=== PATIENT | female | born 1945 | race Caucasian/White ===

== ENCOUNTER → 2018-04-01 11:04 | Outpatient (POV) | payer MEDICARE, SELFPAY | PROVIDERS: Visit Provider Dermatology | DX: Z00.00 Encounter for general adult medical examination without abnormal findings (principal) ==

== ENCOUNTER → 2018-11-05 12:00 | Outpatient (CLI) | payer MEDICARE, SELFPAY ==
--- NOTE | 2018-11-05 12:24 | XR_ITS ---
EXAM: XR cervical spine 3V HISTORY: Neck pain ITS.REASON: BACK PAIN ORDERING PHYSICIAN: Rosa Elena Christine APRN PATIENT AGE: 72 years COMPARISON: None FINDINGS: There is minimal anterolisthesis of C4 on C5 of 2 to 3 mm. Mild degenerative disc disease is present at C5-C6 and C6-C7. There are mild facet hypertrophic changes from C3 to C7. No fracture or dislocation. No lytic or blastic change. 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
--- NOTE | 2018-11-05 12:25 | XR_ITS ---
EXAM: XR thoracic spine 3V HISTORY: Thoracic pain stiffness ITS.REASON: BACK PAIN Comparison: None FINDINGS: Normal alignment. There is mild multilevel degenerative disc disease throughout the thoracic spine. No lytic or blastic change. Normal alignment. No acute fracture or dislocation. IMPRESSION: Mild degenerative changes, no acute finding
--- NOTE | 2018-11-05 12:25 | XR_ITS ---
EXAM: XR lumbar spine 2-3V HISTORY: ITS.REASON: Low back PAIN ORDERING PHYSICIAN: Rosa Elena Christine APRN PATIENT AGE: 72 years COMPARISON: None FINDINGS: Normal alignment. Mild degenerative disc disease L1-S1. No acute fracture, dislocation, lytic, or blastic change. Minimal lumbar curvature convex left. IMPRESSION: Mild degenerative changes
--- NOTE | 2018-11-05 12:26 | XR_ITS ---
XR hip RT 2-3V w/pelvis HISTORY: Right hip pain ITS.REASON: HIP PAIN ORDERING PHYSICIAN: Rosa Elena Christine APRN PATIENT AGE: 72 years COMPARISON: None FINDINGS: No fracture or dislocation is evident. No significant degenerative change. No lytic or blastic change. Unremarkable soft tissues IMPRESSION: Negative hip
== END ==
PROVIDERS: PCP Family Medicine; Visit Provider Nurse Practitioner Family
DX: M54.9 Dorsalgia, unspecified (principal); M25.551 Pain in right hip; M54.2 Cervicalgia
CPT/HCPCS: 72040; 72072; 72100; 73502

== ENCOUNTER → 2019-04-07 09:55 | Outpatient (POV) | payer MEDICARE, SELFPAY | PROVIDERS: Visit Provider Dermatology | DX: Z00.00 Encounter for general adult medical examination without abnormal findings (principal) ==

== ENCOUNTER → 2020-01-05 10:42 | Outpatient (CLI) | payer MEDICARE, SELFPAY ==
--- NOTE | 2020-01-05 10:45 | XR_ITS ---
PROCEDURE: XR DEXA AXIAL SKELETON CLINICAL HISTORY: OSTEOPENIA COMPARISON: CR BONE3 BONE DENSITOMETRY(HIP:LT SPINE from 11/13/2016 FINDINGS: The right hip BMD is 0.740 with a T-score of -1.0. The left hip BMD is 0.804 with a T-score of -1.1. The lumbar spine BMD is 1.073 with a T-score of 0.2. No significant change compared to the previous exam. IMPRESSION: This patient is considered osteopenic according to the World Health Organization criteria. Bone density is between 10 and 25 percent below young normal. Fracture risk is moderate. Treatment is advised. Based on these results a follow-up exam is recommended in 2 year. Dictated by: Сергей Clark MD 01/06/2020 04:19 Сергей Clark MD in [facility] 01/06/2020 04:19
== END ==
PROVIDERS: PCP Family Medicine; Visit Provider Nurse Practitioner Family
DX: M85.89 Other specified disorders of bone density and structure, multiple sites (principal)
CPT/HCPCS: 77080

== ENCOUNTER → 2020-04-12 12:52 | Outpatient (POV) | payer MEDICARE, SELFPAY | PROVIDERS: Visit Provider Dermatology | DX: Z00.00 Encounter for general adult medical examination without abnormal findings (principal) ==

== ENCOUNTER → 2020-07-25 08:51 | Outpatient (CLI) | payer MEDICARE, SELFPAY ==
--- NOTE | 2020-07-25 08:55 | XR_ITS ---
PROCEDURE: XR HAND LT MIN 3V CLINICAL INDICATION: LT hand pain COMPARISON: No exams were available for comparison FINDINGS: Severe degenerative changes of the 1st CMC joint are noted. No acute fractures or dislocations. There is loss of joint space and heterotopic ossification noted at the distal interphalangeal joints. No evidence of erosions. Bone density is normal. No significant soft tissue abnormality. Other findings:None. IMPRESSION: Osteoarthritis noted at 1st CMC joint and DIP joints. No acute fractures or dislocations. Dictated by: Lupis Billy 07/25/2020 17:45 Lupis Billy in [facility] 07/25/2020 17:45
--- NOTE | 2020-07-25 08:55 | XR_ITS ---
PROCEDURE: XR HAND RT MIN 3V CLINICAL INDICATION: BL hand pain COMPARISON: No exams were available for comparison FINDINGS: Degenerative changes are noted with mild juxta-articular osteoporosis, predominantly at the PIP and DIP joints. No acute fractures or dislocations. Osteoarthritis noted at the 1st CMC joint. No significant soft tissue abnormality. IMPRESSION: Findings are suggestive of osteoarthritis. No acute fractures or dislocations. Dictated by: Lupis Billy 07/25/2020 17:47 Lupis Billy in [facility] 07/25/2020 17:47
== END ==
PROVIDERS: PCP Family Medicine; Visit Provider Orthopaedic Surgery
DX: M79.641 Pain in right hand (principal); M79.642 Pain in left hand
CPT/HCPCS: 73130

== ENCOUNTER → 2020-08-19 11:03 | Outpatient (CLI) | payer MEDICARE, SELFPAY | PROVIDERS: PCP Nurse Practitioner Family; Visit Provider Orthopaedic Surgery Hand Surgery | DX: Z01.812 Encounter for preprocedural laboratory examination (principal); Z11.52 Encounter for screening for COVID-19 | CPT/HCPCS: U0003 ==

== ENCOUNTER → 2021-05-18 13:12 | Outpatient (CLI) | payer MEDICARE, SELFPAY ==
[2021-05-18 13:52] LABS: Adenovirus,PCR Not Detected (NotDetected); Bordetella Pertussis Not Detected (NotDetected); Chlamydophila Pneumoniae, PCR Not Detected (NotDetected); Coronavirus 229E Not Detected (NotDetected); Coronavirus NL63 Not Detected (NotDetected); Coronavirus OC43 Not Detected (NotDetected); Coronovirus HKU1,PCR Not Detected (NotDetected); Human Metapneumovirus Not Detected (NotDetected); Influenza A, PCR Not Detected (NotDetected); Influenza AH1, 2009 Not Detected (NotDetected); Influenza AH1, PCR Not Detected (NotDetected); Influenza AH3,PCR Not Detected (NotDetected); Influenza B, PCR Not Detected (NotDetected); Mycoplasma Pneumoniae, PCR Not Detected (NotDetected); Parainfluenza 1, PCR Not Detected (NotDetected); Parainfluenza 2, PCR Not Detected (NotDetected); Parainfluenza 3, PCR Not Detected (NotDetected); Parainfluenza 4, PCR Not Detected (NotDetected); Respiratory Syncytial Virus Not Detected (NotDetected); Rhinovirus/Enterovirus Not Detected (NotDetected)
[2021-05-18 14:01] LABS: Basophils % 0.2 % (0.1-2.0); Eosinophils % 0.2 % (0.1-12.0); Hematocrit 40.4 % (37.0-47.0); Hemoglobin 13.2 g/dL (12.2-16.2); Lymphocytes # 1.2 K/mm3 (0.7-4.5); Lymphocytes % 10.7 % (10-50); Mean Corpuscular HGB Conc 32.6 g/dL (31.8-35.4); Mean Corpuscular Hemoglobin 30.1 pg (27.0-31.2); Mean Corpuscular Volume 92.4 fl (81-99); Monocytes # 0.6 K/mm3 (0.1-1.0); Monocytes % 5.3 % (1.7-9.3); Neutrophils # 9.3 K/mm3 (1.8-7.8); Neutrophils % 83.6 % (37.0-80.0); Platelet Count 261 K/mm3 (142-424); Red Blood Count 4.37 M/mm3 (4.20-5.40); Red Cell Distribution Width 13.1 % (11.5-17.5); White Blood Count 11.1 K/mm3 (4.8-10.8)
[2021-05-18 16:28] LABS: Coronavirus 19, PCR Detected (NotDetected)
== END ==
PROVIDERS: PCP Nurse Practitioner Family; Visit Provider Physician Assistant
DX: U07.1 COVID-19 (principal)
CPT/HCPCS: 36415; 85025; 87581; 87632; 87798; C9803; U0003; U0005

== ENCOUNTER → 2021-07-11 14:11 | Outpatient (POV) | payer MEDICARE, SELFPAY | PROVIDERS: Visit Provider Dermatology | DX: Z00.00 Encounter for general adult medical examination without abnormal findings (principal) ==

== ENCOUNTER → 2021-07-24 09:11 | Outpatient (CLI) | payer MEDICARE, SELFPAY ==
--- NOTE | 2021-07-24 09:15 | XR_ITS ---
FINAL REPORT CLINICAL HISTORY: pain, arthritis FINDINGS: LEFT FOOT: Three views of the left foot were obtained. There is no acute fracture or dislocation. There are [id number] degenerative changes, greatest at the tarsometatarsal joints. There is pes planus deformity. There is a small plantar calcaneal spur. There is no soft tissue abnormality. IMPRESSION: Mild and moderate degenerative changes. Reviewed, Interpreted and Dictated by David Dixon III, MD Transcribed by Marvel Mora Authenticated by David Dixon III, MD on 07/24/2021 11:17:22 AM [facility]
--- NOTE | 2021-07-24 09:15 | XR_ITS ---
FINAL REPORT CLINICAL HISTORY: pain, arthritis FINDINGS: RIGHT FOOT: Three views of the right foot were obtained. There is no acute fracture or dislocation. There are moderate degenerative changes greatest at the tarsometatarsal joints. There is a plantar calcaneal spur. There is no soft tissue abnormality. IMPRESSION: Moderate degenerative changes. Reviewed, Interpreted and Dictated by David Dixon III, MD Transcribed by Marvel Mora Authenticated by David Dixon III, MD on 07/24/2021 11:17:[address] [facility]
== END ==
PROVIDERS: PCP Nurse Practitioner Family; Visit Provider Podiatrist
DX: M79.672 Pain in left foot (principal); M79.671 Pain in right foot; A05.4 Foodborne Bacillus cereus intoxication; B95.7 Other staphylococcus as the cause of diseases classified elsewhere
CPT/HCPCS: 73630; 87070; 87077; 87186; 87205; 88304; 88312

== ENCOUNTER → 2021-07-25 15:08 | Outpatient (CLI) | payer MEDICARE, SELFPAY ==
--- NOTE | 2021-07-25 15:14 | XR_ITS ---
FINAL REPORT CLINICAL HISTORY: CHEST PAIN FINDINGS: Two views of the chest were obtained. The heart size and pulmonary vascularity are within normal limits. The mediastinum is normal. No acute pulmonary abnormality is identified. There is no pneumothorax. The bony thorax is intact. IMPRESSION: No active cardiopulmonary disease. Reviewed, Interpreted and Dictated by David Dixon III, MD Transcribed by Carey Marx Authenticated by David Dixon III, MD on 07/25/2021 04:31:10 PM [facility]
--- NOTE | 2021-07-25 15:30 | ECG_ITS ---
APPROVED REPORT Exam: Resting ECG HR:72 bpm ECG Measurements Heart Rate 72 AXES KS 202 P 58 QRSd 88 QRS -18 QT 392 T 35 QTc 415 Conclusion SINUS RHYTHM LOW QRS VOLTAGE IN PRECORDIAL LEADS [QRS DEFLECTION < 1.0 mV IN CHEST LEADS] BORDERLINE ECG UNCONFIRMED REPORT Electronically signed by : Merrick Cortés MD 07/29/2021 08:17:47
== END ==
PROVIDERS: PCP Nurse Practitioner Family; Visit Provider Nurse Practitioner Family
DX: R07.9 Chest pain, unspecified (principal)
CPT/HCPCS: 71046; 93005

== ENCOUNTER 2022-05-27 05:02 | Emergency (ER) | payer MEDICARE, SELFPAY ==
--- NOTE | 2022-05-27 05:16 | ECG_ITS ---
APPROVED REPORT Exam: Resting ECG HR:78 bpm ECG Measurements Heart Rate 78 AXES MI 198 P 60 QRSd 88 QRS -15 QT 405 T 40 QTc 438 Conclusion SINUS RHYTHM LOW QRS VOLTAGE IN PRECORDIAL LEADS [QRS DEFLECTION < 1.0 mV IN CHEST LEADS] BORDERLINE ECG UNCONFIRMED REPORT Electronically signed by : Merrick Cortés MD 05/27/2022 15:13:18
--- NOTE | 2022-05-27 05:23 | HMH.EDGENADL ---
Discharge Plan Disposition Patient Disposition: Home, Self-Care Condition: Good Chief Complaint: Extremity Problem,Nontraumatic Prescriptions Prescriptions: No Action loratadine 10 mg tablet 10 mg PO Label Comments: TK 1 T PO QD diclofenac sodium 1 % gel TOPICAL lisinopril-hydrochlorothiazide 10-12.5 mg tablet 1 tab PO omeprazole 20 mg capsule,delayed release(DR/EC) 20 mg PO simvastatin 20 mg tablet 20 mg PO hydroxychloroquine 200 mg tablet 200 mg PO fluticasone propionate 50 mcg/actuation spray,suspension INTRANASAL montelukast 10 mg tablet 10 mg PO ciclopirox 8 % solution 1 applic TOPICAL DAILY 90 Days Qty: 6.6 3RF Rx Instructions: apply over previous coat; remove with alcohol every 7 days and file down nail albuterol sulfate 90 mcg/actuation HFA aerosol inhaler INHALATION nystatin 100,000 unit/gram powder 1 applic TOPICAL BID Qty: 45 3RF Referrals Follow up/Referrals: Booker Seth MD [Primary Care Provider] - See instructions Clinical Impressions Clinical Impression: Arm pain, left Instructions Patient Instructions: DI for Arm Pain Discharge ED Provider: Dilip Nash General Adult HPI General Chief complaint: Extremity Problem,Nontraumatic Stated complaint: Left arm Pain no injury,nausea Time Seen by Provider: 05/27/22 05:06 Mode of Arrival: Ambulatory History of Present Illness HPI narrative: 76-year-old female, history of hypertension, hyperlipidemia both treated, no coronary disease although she has had ablations for tachycardic episodes. She presents tonight with left arm pain, states she was urged by her present because of significant family history of cardiac disease although she does not have any documented herself. She has had stress test although its been greater than 2 years since the last time this was done. She denies any shortness of breath, nausea, vomiting, diaphoresis or any other symptoms. Denies palpitations, lightheadedness or near syncopal episodes. Pain is isolated to the lateral aspect of the left midshaft humerus. Not reproducible with movement or palpation, there was no injury noted, denies any distal numbness or tingling, sensation is normal there. Related Data Home Medications Medication Instructions Recorded Confirmed diclofenac sodium 1 % topical gel g topical 03/14/20 01/11/22 fluticasone propionate 50 spray intranasal 03/14/20 01/11/22 mcg/actuation nasal spray,suspension hydroxychloroquine 200 mg tablet 200 mg PO 03/14/20 01/11/22 lisinopril 10 1 tab PO 03/14/20 01/11/22 mg-hydrochlorothiazide 12.5 mg tablet loratadine 10 mg tablet 10 mg PO 03/14/20 01/11/22 montelukast 10 mg tablet 10 mg PO 03/14/20 01/11/22 omeprazole 20 mg capsule,delayed 20 mg PO 03/14/20 01/11/22 release simvastatin 20 mg tablet 20 mg PO 03/14/20 01/11/22 albuterol sulfate 90 mcg/actuation g inhalation 07/24/21 01/11/22 aerosol inhaler Previous Rx's Medication Instructions Recorded ciclopirox 8 % topical solution 1 applic topical DAILY toenail 03/14/20 fungus 3 months #6.6 mL nystatin 100,000 unit/gram topical 1 applic topical BID #45 ea 07/24/21 powder Allergies Allergy/AdvReac Type Severity Reaction Status Date / Time No Known Allergies Allergy Verified 01/11/22 11:18 [facility] Disclaimer: The information contained in this section may have been updated after the patient was seen, as this information can be updated by other users. Social History Smoking Status: Never smoker alcohol intake: never current occupational status: employed Travel in the last 8 weeks: None ROS Obtained: Yes All systems reviewed & no additional complaints except as documented Physical Exam General General appearance: alert and in no apparent distress Head Head exam: atraumatic, normocephal
[2022-05-27 05:31] VITALS: BP 157/98; PULSE 73; RESP 18; TEMP 36.8; O2SAT 98; BMI 29.5
--- NOTE | 2022-05-27 05:32 | XR_ITS ---
PROCEDURE INFORMATION: Exam: XR Left Humerus Exam date and time: 05/27/2022 5:58 AM Age: 76 years old Clinical indication: Pain; Upper arm; Left TECHNIQUE: Imaging protocol: Radiologic exam of the Left humerus. Views: 2 or more views. COMPARISON: None FINDINGS: Bones/joints: Degenerative change. No acute bony injury in the visualized left humerus. If injury involving the shoulder or elbow is of clinical concern, dedicated radiographs would be recommended. Soft tissues: Unremarkable. Other findings: Metallic snaps. IMPRESSION: No acute bony injury in the visualized left humerus, see comments above.
--- NOTE | 2022-05-27 05:33 | XR_ITS ---
PROCEDURE INFORMATION: Exam: XR Chest Exam date and time: 05/27/2022 5:58 AM Age: 76 years old Clinical indication: Pain; Chest pressure; Additional info: Sob/cp TECHNIQUE: Imaging protocol: Radiologic exam of the chest. Views: 1 view. COMPARISON: CR XR CHEST 2V 07/25/2021 3:17 PM FINDINGS: Lungs: Interstitial prominence without acute airspace disease. Pleural spaces: No pleural effusion. Heart/Mediastinum: Epicardial fat, without cardiomegaly. Bones/joints: Degenerative change. When correlating with the previous study, no significant interval changes are present. IMPRESSION: No acute airspace or pleural disease.
[2022-05-27 05:40] LABS: Chloride 101 mmol/L (98-107)
[2022-05-27 05:41] LABS: Basophils # 0.1 K/mm3 (0-0.2); Basophils % 1.6 % (0.1-2.0); Eosinophils # 0.1 K/mm3 (0.0-0.4); Eosinophils % 2.3 % (0.1-12.0); Hematocrit 40.2 % (37.0-47.0); Hemoglobin 13.6 g/dL (12.2-16.2); Lymphocytes # 2.3 K/mm3 (0.7-4.5); Lymphocytes % 37.9 % (10-50); Mean Corpuscular HGB Conc 33.8 g/dL (31.8-35.4); Mean Corpuscular Hemoglobin 30.3 pg (27.0-31.2); Mean Corpuscular Volume 89.7 fl (81-99); Mean Platelet Volume 7.7 fl (7.4-10.4); Monocytes # 0.5 K/mm3 (0.1-1.0); Monocytes % 7.8 % (1.7-9.3); Neutrophils # 3.1 K/mm3 (1.8-7.8); Neutrophils % 50.3 % (37.0-80.0); Platelet Count 234 K/mm3 (142-424); Potassium 3.5 mmoL/L (3.5-5.1); Red Blood Count 4.48 M/mm3 (4.20-5.40); Red Cell Distribution Width 13.1 % (11.5-17.5); Sodium 135 mmol/L (136-145); White Blood Count 6.1 K/mm3 (4.8-10.8)
[2022-05-27 05:43] LABS: Alanine Aminotransferase 23 U/L (12-78); Aspartate Amino Transferase 34 U/L (14-36); Blood Urea Nitrogen 9 mg/dl (7-17); Creatinine Clearance Estimated 71 mL/min (50-200); Estimated Glomerular Filt Rate 121 ml/min (>60); GFR (African American) 146 ML/MIN (>60)
[2022-05-27 05:44] LABS: Albumin/Globulin Ratio 1.5 (1.1-1.8); Alkaline Phosphatase 107 U/L (38-126); Anion Gap 8.5 mEq/L (5-15); Bilirubin,Total 0.5 mg/dl (0.2-1.3); Calcium 8.8 mg/dl (8.4-10.2); Carbon Dioxide 29 mmol/L (22.0-30.0); Globulin 2.6 g/dL (1.3-3.2); Glucose 110 mg/dl (74-100); Total Protein,Serum 6.6 g/dl (6.3-8.2)
[2022-05-27 05:57] LABS: Troponin I < 0.01 ng/ml (0.00-0.034)
[2022-05-27 06:13] VITALS: BP 150/95; PULSE 71; RESP 18; TEMP 36.6; O2SAT 99
== END 2022-05-27 06:22 | disposition home or self-care (01) ==
PROVIDERS: Emergency Provider Emergency Medicine; PCP Family Medicine
DX: M79.602 Pain in left arm (principal); I10 Essential (primary) hypertension; E78.5 Hyperlipidemia, unspecified; Z82.49 Family history of ischemic heart disease and other diseases of the circulatory system
CPT/HCPCS: 71045; 73060; 80053; 84484; 85025; 93005; 99285

== ENCOUNTER → 2022-06-08 12:23 | Outpatient (CLI) | payer MEDICARE, SELFPAY ==
[2022-06-08 15:07] LABS: NT Pro Brain Natriuretic Pep. 104 pg/mL (0-125)
== END ==
PROVIDERS: PCP Nurse Practitioner Family; Visit Provider Internal Medicine Cardiovascular Disease
DX: I20.8 Other forms of angina pectoris (principal); M79.602 Pain in left arm; R94.31 Abnormal electrocardiogram [ECG] [EKG]; R06.09 Other forms of dyspnea
CPT/HCPCS: 36415; 83880

== ENCOUNTER → 2022-06-18 07:11 | Outpatient (CLI) | payer MEDICARE, SELFPAY ==
--- NOTE | 2022-06-18 07:12 | CT_ITS ---
FINAL REPORT TECHNIQUE: Thin section axial images were obtained through the heart and coronary arteries per CT coronary calcium score protocol. This study was performed with techniques to keep radiation doses as low as reasonably achievable (ALARA). Individualized dose reduction techniques using automated exposure control or adjustment of mA and/or kV according to the patient's size were employed. CLINICAL HISTORY: eval for cad. family hx of heart disease. FINDINGS: On the axial images, there is calcification within the LAD. This gives a coronary artery calcium score of 20 based on the Agatston scale. This coronary calcium score places the patient within the 40th percentile based on age and gender. The heart is normal in size. There is no pleural or pericardial effusion. Limited evaluation of the lungs reveal no suspicious nodule. There is a calcified granuloma in the right lung. IMPRESSION: Coronary artery calcium score of 20 places pasted in the 40th percentile based on age and gender. Reviewed, Interpreted and Dictated by David Dixon III, MD Transcribed by Rosa Elena Lopes Authenticated and . [facility]
--- NOTE | 2022-06-18 07:39 | CA_ITS ---
APPROVED REPORT EXAM: Comprehensive 2D, Doppler, and color-flow Echocardiogram Real Estate Developer: Rona Angel, RT(R) Ht: 5 ft 9 in Wt: 209lbs BSA: 2.10 BP: 140/58 mmHg Indications: Angina, CP, HTN, hyperlipidemia, family history of HD, abn EKG, hx 4 ablations for arrhythymias. 2D Dimensions LVOT 2.05 cm (M/F) 1.5-2.5 LVEF (Rain's) 63.20 % F: 54 - 74 LV Volume 75.10 mL F: 46 - 106 LV Volume Index 35.59 mL/m2 F: 29 - 61 LA Volume 19.60 mL LA Volume Index 9.29 mL/m2 (M/F) 16-34 M-Mode Dimensions RVDd 2.63 cm (0.9-2.6) LA Diam 4.27 cm (1.9-4.0) LVDd 4.88 cm (3.5-5.7) Ao Diam 2.73 cm (2.0-3.7) LVDs 3.59 cm (3.5-5.7) IVSd 0.75 cm (0.6-1.1) PWd 0.78 cm (0.6-1.1) EF (Teich) 51.60% FS 26.40% EDV (Teich) 111.70 mL ESV (Teich) 54.10 mL LV Diastology E Decel Time 193.00 (160-240 msec) E/A Ratio 0.9 MED E' 8.60 (< 7 cm/sec) E'/MED E' Ratio 8.38 (>14) LAT E' 10.00 (<10 cm/sec) E/LAT E' Ratio 7.21 (>14) Mitral Valve MV E Max Clifton. 72.00 (40-130 cm/s) MV A Velocity 81.00 (40-130 cm/s) E/A Ratio 0.89 MV Decel. Time 193.00 (160-240 ms) MV PHT 57.00 ms Left Ventricle Left atrium is mildly enlarged, left ventricle is normal size mild concentric left ventricular hypertrophy, estimated ejection fraction 55% with no regional wall motion abnormality, grade 1 diastolic dysfunction seen without tissue Doppler evidence of raise left atrial pressure. Right Ventricle Right atrium and right ventricular normal size and contractility. Aortic Valve Aortic valve is minimally thickened and fibrosed there is no aortic stenosis, there is trace aortic insufficiency. Mitral Valve Mitral valve is grossly normal, there is trace mitral regurgitation. Tricuspid Valve Tricuspid valve grossly normal, there is trace tricuspid regurgitation, tricuspid regurgitation jet velocity is inadequate for calculation of the right ventricular systolic pressure. Pulmonic Valve Pulmonic valve is poorly visualized. Great Vessels Aortic root is normal size. Inferior vena cava is poorly visualized. Pericardium No significant pericardial effusion noted. Conclusion 1. Mildly enlarged left atrium, normal left ventricular size, mild concentric left ventricular hypertrophy, estimated ejection fraction 55% with no regional wall motion abnormality, grade 1 diastolic dysfunction seen without tissue Doppler evidence of late left atrial pressure. 2. Thickened and calcified aortic valve without aortic stenosis, there is trace aortic insufficiency. 3. Trace mitral and tricuspid regurgitation. 4. No significant pericardial effusion noted. 5. Inferior vena cava is poorly visualized. Electronically signed by : Ac Jarquin MD 06/18/2022 18:02:44
== END ==
PROVIDERS: PCP Family Medicine; Visit Provider Internal Medicine Cardiovascular Disease
DX: I20.8 Other forms of angina pectoris (principal); M79.602 Pain in left arm; R94.31 Abnormal electrocardiogram [ECG] [EKG]; Z13.6 Encounter for screening for cardiovascular disorders
CPT/HCPCS: 75571; 93306

== ENCOUNTER → 2022-07-06 11:35 | Outpatient (CLI) | payer MEDICARE, SELFPAY ==
[2022-07-06 12:54] LABS: Chloride 96 mmol/L (98-107); Potassium 3.9 mmoL/L (3.5-5.1); Sodium 131 mmol/L (136-145)
[2022-07-06 12:57] LABS: Blood Urea Nitrogen 6 mg/dl (7-17); Estimated Glomerular Filt Rate 121 ml/min (>60); GFR (African American) 146 ML/MIN (>60)
[2022-07-06 12:58] LABS: Anion Gap 8.9 mEq/L (5-15); Calcium 8.7 mg/dl (8.4-10.2); Carbon Dioxide 30 mmol/L (22.0-30.0); Glucose 93 mg/dl (74-100)
== END ==
PROVIDERS: PCP Family Medicine; Visit Provider Internal Medicine Cardiovascular Disease
DX: I10 Essential (primary) hypertension (principal); I20.8 Other forms of angina pectoris
CPT/HCPCS: 36415; 80048

== ENCOUNTER → 2022-11-14 09:22 | Outpatient (CLI) | payer MEDICARE, SELFPAY ==
--- NOTE | 2022-11-14 09:26 | XR_ITS ---
FINAL REPORT TECHNIQUE: Bone densitometry calculations of the lumbar spine and left hip were obtained. CLINICAL HISTORY: post menopausal FINDINGS: Using L1-4, the bone mineral density of the spine is 1.079 g/cm2, corresponding to T-score of 0.3 and a Z score of 2.7. This is within the range of normal. Using the left hip, the bone mineral density of the femoral neck is 0.791 g/cm2, corresponding to a T-score of -0.5 and a Z-score of 1.6. This is within the range of normal. NOTE: T-score: Standard deviation compared with peak bone mass of young adult mean. *Following the recommendations of the International Society of Bone densitometry, classification of hip BMD is based on the lower of two T-scores; total hip or femoral neck. IMPRESSION: 1. Bone mineral density of the lumbar spine within the range of normal. 2. Bone mineral density of the left femoral neck within the range of normal. Reviewed, Interpreted and Dictated by Destiny Villalpando MD Transcribed by Rosa Elena Lopes Authenticated and [facility]
== END ==
PROVIDERS: PCP Family Medicine; Visit Provider Nurse Practitioner Family
DX: Z78.0 Asymptomatic menopausal state (principal); Z13.820 Encounter for screening for osteoporosis
CPT/HCPCS: 77080

== ENCOUNTER → 2023-03-19 12:32 | Outpatient (CLI) | payer MEDICARE, SELFPAY ==
--- NOTE | 2023-03-19 12:35 | XR_ITS ---
FINAL REPORT CLINICAL HISTORY: foot pain COMPARISON: 07/24/2021 FINDINGS: Left foot Three views were obtained. There is no acute fracture or dislocation. There are moderate degenerative changes. Plantar calcaneal spur is identified. There is pes planus deformity. No soft tissue abnormality is identified. IMPRESSION: Moderate degenerative changes. Reviewed, Interpreted and Dictated by David Dixon III, MD Transcribed by Rosa Elnea Lopes Authenticated and [facility]
== END ==
PROVIDERS: PCP Family Medicine; Visit Provider Nurse Practitioner Family
DX: M19.071 Primary osteoarthritis, right ankle and foot (principal); M19.072 Primary osteoarthritis, left ankle and foot
CPT/HCPCS: 73630

== ENCOUNTER 2023-09-05 19:38 | Emergency (ER) | payer MEDICARE, SELFPAY ==
[2023-09-05 19:40] VITALS: BP 165/73; PULSE 75; RESP 18; TEMP 36.6; O2SAT 99; BMI 31.1
--- NOTE | 2023-09-05 19:52 | XR_ITS ---
PROCEDURE INFORMATION: Exam: XR Left Wrist Exam date and time: 09/05/2023 8:07 PM Age: 77 years old Clinical indication: Injury or trauma; Fall; Swelling (edema); Wrist; Left TECHNIQUE: Imaging protocol: Radiologic exam of the left wrist. Views: 1 or 2 views. COMPARISON: 1. CR XR FOREARM LT 2V 09/05/2023 8:07 PM 2. CR XR HAND LT MIN 3V 07/25/2020 8:56 AM FINDINGS: Bones/joints: Nondisplaced fracture of the distal radial articular surface at the radial styloid. Unchanged ossicle along the proximal aspect of the triquetrum which could be an unusual shape and position of the pisiform or the sequela of an old injury. Severe degenerative change at the STT and 1st carpometacarpal joints. Osteopenia. Soft tissues: Normal. IMPRESSION: Nondisplaced fracture of the distal radial articular surface at the radial styloid.
--- NOTE | 2023-09-05 19:52 | XR_ITS ---
PROCEDURE INFORMATION: Exam: XR Left Hand Exam date and time: 09/05/2023 8:07 PM Age: 77 years old Clinical indication: Injury or trauma; Fall; Swelling (edema); Wrist; Left TECHNIQUE: Imaging protocol: Radiologic exam of the left hand. Views: 3 or more views. COMPARISON: CR XR HAND LT MIN 3V 07/25/2020 8:56 AM FINDINGS: Bones/joints: Nondisplaced fracture of the distal radial articular surface at the radial styloid. Unusual shape and position of the pisiform versus sequela of an old fracture of the triquetrum. Severe degenerative change at the STT and 1st carpometacarpal joints. Moderate degenerative change of the 1st metacarpophalangeal joint and 1st interphalangeal joint. Severe degenerative change of the 2nd through 5th distal interphalangeal joints and 4th and 5th proximal interphalangeal joints. Soft tissues: Normal. IMPRESSION: Nondisplaced fracture of the distal radial articular surface at the radial styloid.
--- NOTE | 2023-09-05 19:52 | CT_ITS ---
PROCEDURE INFORMATION: Exam: CT Cervical Spine Without Contrast Exam date and time: 09/05/2023 8:09 PM Age: 77 years old Clinical indication: Injury or trauma; Fall TECHNIQUE: Imaging protocol: Computed tomography of the cervical spine without contrast. Radiation optimization: All CT scans at this facility use at least one of these dose optimization techniques: automated exposure control; mA and/or kV adjustment per patient size (includes targeted exams where dose is matched to clinical indication); or iterative reconstruction. COMPARISON: CR Cervical spine 11/05/2018 12:49 PM FINDINGS: Bones: No evident fracture. Degenerative changes of the C-spine most pronounced at C6-C7. Otherwise unremarkable CT of the C-spine with no fracture evident. Alignment and vertebral body heights are intact. Lungs: Lung apices are normal. Soft tissues: Unremarkable. IMPRESSION: Degenerative changes. No acute abnormality.
--- NOTE | 2023-09-05 19:52 | XR_ITS ---
PROCEDURE INFORMATION: Exam: XR Left Forearm Exam date and time: 09/05/2023 8:07 PM Age: 77 years old Clinical indication: Injury or trauma; Fall; Swelling (edema); Wrist; Left TECHNIQUE: Imaging protocol: Radiologic exam of the left forearm. Views: 2 views. COMPARISON: CR XR HAND LT MIN 3V 09/05/2023 8:07 PM FINDINGS: Bones/joints: Nondisplaced fracture of the distal radial articular surface at the radial styloid. No other fracture. No dislocation. Soft tissues: Normal. IMPRESSION: Nondisplaced fracture of the distal radial articular surface at the radial styloid.
--- NOTE | 2023-09-05 19:52 | ED_ITS ---
<Statement entered by Roosevelt Leiva MD - 09/05/23 21:14> I was consulted by the ANGIE, and we discussed the complexity of the problems being addressed. I approved the treatment and management plan for this patient's care in the emergency department, thus performing a substantive portion of the medical decision making. Roosevelt Leiva MD Discharge Plan Disposition Patient Disposition: Home, Self-Care Condition: Good Chief Complaint: Fall Prescriptions Prescriptions: No Action azelastine 137 mcg (0.1 %) aerosol,spray 1 spray intranasal ONCE Patient Comments: USE 1 TO 2 SPRAYS IN EACH NOSTRIL TWICE DAILY ascorbate calcium (vitamin C) 500 mg tablet 1,200 mg PO DAILY cholecalciferol (vitamin D3) 50 mcg (2,000 unit) capsule 50 mcg PO DAILY albuterol sulfate 90 mcg/actuation HFA aerosol inhaler inhalation Patient Comments: INHALE 1 PUFF BY MOUTH EVERY 4 HOURS NEEDED loratadine 10 mg tablet 10 mg PO Patient Comments: TK 1 T PO QD omeprazole 20 mg capsule,delayed release(DR/EC) 20 mg PO simvastatin 20 mg tablet 20 mg PO hydroxychloroquine 200 mg tablet 200 mg PO fluticasone propionate 50 mcg/actuation spray,suspension INTRANASAL montelukast 10 mg tablet 10 mg PO lisinopril-hydrochlorothiazide 20-12.5 mg tablet 1 tab PO DAILY Qty: 90 3RF Referrals Follow up/Referrals: Booker Seth MD [Primary Care Provider] - See instructions Mandeep Schmid DO [Staff Physician] - See instructions Clinical Impressions Clinical Impression: Closed left radial fracture Discharge ED Provider: Roosevelt Leiva General Adult HPI General Chief complaint: Fall Stated complaint: AO05/09@1900 hit LT wrist, facial bruising Time Seen by Provider: 09/05/23 19:40 History of Present Illness HPI narrative: Patient reports that she accidentally fell catching herself with her outstretched left wrist. Patient then moved forward slightly causing abrasion to her face. Patient denies loss of consciousness. She denies abnormal bite. She denies headache neck pain vision changes or any focal neurologic signs. She does complain of pain at the left wrist that she is able to move it but palpation laterally or on the radial aspect causes tenderness. No obvious visible or palpable deformity noted. She denies chest pain shortness of breath fever chills hemoptysis hematochezia melena but does endorse nausea. Related Data Home Medications Medication Instructions Recorded Confirmed fluticasone propionate 50 spray intranasal 03/14/20 07/31/23 mcg/actuation nasal spray,suspension hydroxychloroquine 200 mg tablet 200 mg PO 03/14/20 07/31/23 loratadine 10 mg tablet 10 mg PO 03/14/20 07/31/23 montelukast 10 mg tablet 10 mg PO 03/14/20 07/31/23 omeprazole 20 mg capsule,delayed 20 mg PO 03/14/20 07/31/23 release simvastatin 20 mg tablet 20 mg PO 03/14/20 07/31/23 ascorbate calcium (vitamin C) 500 1,200 mg PO DAILY 06/08/22 07/31/23 mg tablet azelastine 137 mcg (0.1 %) nasal 1 spray intranasal ONCE 06/08/22 07/31/23 spray aerosol cholecalciferol (vitamin D3) 50 50 mcg PO DAILY 06/08/22 07/31/23 mcg (2,000 unit) capsule albuterol sulfate 90 mcg/actuation inhalation 06/21/23 07/31/23 aerosol inhaler Previous Rx's Medication Instructions Recorded lisinopril 20 1 tab PO DAILY #90 tabs 07/02/23 mg-hydrochlorothiazide 12.5 mg tablet oxycodone 5 mg tablet 5 mg PO BID PRN pain (scale score 09/05/23 7-10) #4 tabs Allergies Allergy/AdvReac Type Severity Reaction Status Date / Time No Known Allergies Allergy Verified 07/31/23 15:28 [facility] Disclaimer: The information contained in this section may have been updated after the patient was seen, as this information can be updated by other users. Medical History HTN (hypertension) Diastolic dysfunction Atypical angina Abnormal electrocardiogram [ECG] [EKG] Osteoarthritis Social History Smoking Status: Never smoker alcohol intake: never current occupational status: employed Travel in the last 8 weeks: None ROS Obtained: Yes Systems reviewed as appropriate & no additional complaints except as documented Physical Exam General General appearance: alert and in no apparent distress Head Head exam: atraumatic and normal inspection Eye Eye exam: Present normal appearance, PERRL and EOMI ENT ENT exam: Present normal oropharynx and mucous membranes moist; Absent normal exam Neck Neck exam: Present normal inspection, full ROM and tenderness Chest Chest inspection: Present normal inspection and symmetric chest wall rise Respiratory Respiratory exam: Present normal lung sounds bilaterally and accessory muscle u se Cardiovascular Cardiovascular exam: Present regular rate and normal rhythm Extremities Exam Extremities exam: Present normal inspection, full ROM (Except for left distal upper extremity) and tenderness (Left wrist only) Back Exam Back exam: Present normal inspection and full ROM; Absent tenderness Neurological Exam Neurological exam: Present alert, oriented X3 and CN II-XII intact Psychiatric Psychiatric exam: Present normal affect Skin Skin exam: Present warm, dry and normal color; Absent intact (Patient has a small abrasion above the left eyebrow and under leaving the left nares however there is no laceration hematoma bony deformity noted on palpation. Midface is intact. Midface is stable.) Medical Decision Making Medical Records Medical records reviewed: Yes I reviewed the patient's medical records. Giovanni Inquiry Pt receiving controlled substance: No Vital Signs: 09/05/23 19:40 Temperature 97.8 F Temperature Source Oral Pulse Rate [Right Brachial] 75 Respiratory Rate 18 Blood Pressure [Right Arm] 165/73 H Blood Pressure Mean [Right Arm] 103 02 Sat by Pulse Oximetry 99 Oxygen Delivery Method Room Air Lab Data Lab results reviewed: Yes I reviewed the patient's lab results. Orders (Tests/Meds): ED MEDICATIONS Discontinued Medications Generic Name Dose Route Start Last Admin Trade Name Freq PRN Reason Stop Dose Admin Acetaminophen 1,000 mg 09/05/23 19:52 09/05/23 20:27 Acetaminophen 500mg Tab PO 09/05/23 19:53 1,000 mg ONCE ONE Administration Ondansetron HCl 4 mg 09/05/23 20:02 09/05/23 20:28 Ondansetron 4mg Odt SL 09/05/23 20:03 4 mg ONCE ONE Administration Tetanus/Reduced Diphtheria/Acell Pertussis 0.5 ml 09/05/23 19:54 09/05/23 20:28 Tet/Diphth/Pert-Adult 0.5ml Syringe IM 09/05/23 19:55 0.5 ml .ONCE ONE Administration ORDERS Category Date Time Status CT cervical spine wo con Stat Cat Scan 09/05/23 19:[address] head/brain wo con Stat Cat Scan 09/05/23 19:53 Completed Forearm XR left 2 views [XR forearm LT 2V] Stat Exams 09/05/23 19:52 Completed Hand XR left minimum 3 views [XR hand LT min 3V] Stat Exams 09/05/23 19:52 Completed Wrist XR left 2 views [XR wrist LT 2V] Stat Exams 09/05/23 19:52 Completed Medical Decision Narrative: In summary patient is a 77-year-old female who presents to the emergency department for evaluation of of a fall. Patient is patient is hemodynamically stable upon arrival, afebrile. Physical exam is remarkable for no focal neurologic deficits and a Angela Coma Score 15, tenderness to palpation at the radial aspect of the left wrist however no obvious deformity is palpated or noted. Patient does have full range of motion but painful of the left wrist. Patient has an abrasion slightly above the left eyebrow and underneath the left nares without any laceration hematoma or active bleeding. No midface bony deformity noted. Normal bite. Oropharynx normal. Glascow coma score is 15. Differential diagnosis includes left wrist sprain versus left radius fracture, closed head injury, C-spine injury superficial abrasion. Initial workup will be conducted with CT of the head and C-spine without contrast and x-rays of the distal left upper extremity with plain film. Initial interventions include acetaminophen and Zofran. Initial workup reviewed by me and my informal review of her plain film imaging shows an intra-articular radial head fracture with radiologist read pending. Upon repeat evaluation I had an interactive di scussion with the patient regarding her findings. Will refer the patient to orthopedics with a wrist splint.. Given this for discharge home with follow-up with Ortho as previously described. Critical Care Critical Care Time Critical Care Time: No
--- NOTE | 2023-09-05 19:53 | CT_ITS ---
PROCEDURE INFORMATION: Exam: CT Head Without Contrast Exam date and time: 09/05/2023 8:07 PM Age: 77 years old Clinical indication: Injury or trauma; Fall TECHNIQUE: Imaging protocol: Computed tomography of the head without contrast. Radiation optimization: All CT scans at this facility use at least one of these dose optimization techniques: automated exposure control; mA and/or kV adjustment per patient size (includes targeted exams where dose is matched to clinical indication); or iterative reconstruction. COMPARISON: CR Cervical spine 11/05/2018 12:49 PM FINDINGS: Brain: No intracranial hemorrhage. Generalized atrophic changes of the ventricles and subarachnoid spaces. Chronic small-vessel ischemic changes noted. No mass, mass effect or midline shift. Intracranial atherosclerotic changes are noted. Cerebral ventricles: See Brain finding. Paranasal sinuses: Visualized sinuses are unremarkable. No fluid levels. Mastoid air cells: Visualized mastoid air cells are well aerated. Bones: Unremarkable. No acute fracture. Soft tissues: Unremarkable. IMPRESSION: No acute intracranial abnormality. Chronic changes as above.
[2023-09-05] MEDS: ACETAMINOPHEN 500MG TAB 1000 MG PO (20:27)
[2023-09-05] MEDS: ONDANSETRON 4MG ODT 4 MG SL (20:28)
[2023-09-05] MEDS: TET/DIPHTH/PERT-ADULT 0.5ML SYRINGE 0.5 ML IM (20:28)
[2023-09-05 21:22] VITALS: BP 166/54; PULSE 88; RESP 18; TEMP 36.6; O2SAT 99
== END 2023-09-05 21:23 | disposition home or self-care (01) ==
PROVIDERS: Emergency Provider Emergency Medicine; PCP Family Medicine
DX: S00.81XA Abrasion of other part of head, initial encounter; S52.515A Nondisplaced fracture of left radial styloid process, initial encounter for closed fracture; M25.532 Pain in left wrist; W19.XXXA Unspecified fall, initial encounter; Z23 Encounter for immunization
CPT/HCPCS: 70450; 72125; 73090; 73100; 73130; 90471; 90715; 99285

== ENCOUNTER 2023-09-24 11:59 | Outpatient (CLI) | payer MEDICARE, SELFPAY ==
--- NOTE | 2023-09-24 12:02 | XR_ITS ---
FINAL REPORT CLINICAL HISTORY: foot / pain in toes bilaterally COMPARISON: None FINDINGS: LEFT FOOT Three views of the left foot demonstrate no acute fracture or dislocation. There is significant joint narrowing at the first interphalangeal joint in the second through fifth PIP joints consistent with osteoarthritis. There are moderate hypertrophic changes of the tarsometatarsal joints. The soft tissues are unremarkable. IMPRESSION: Hypertrophic changes without acute bony abnormality. Reviewed, Interpreted and Dictated by Lamont Roe MD Transcribed by Akosua Jesus Authenticated and [facility]
--- NOTE | 2023-09-24 12:02 | XR_ITS ---
FINAL REPORT CLINICAL HISTORY: foot / pain in toes bilaterally COMPARISON: None FINDINGS: RIGHT FOOT 3 views of the right foot were obtained. There is no acute fracture or dislocation. There are moderate hypertrophic changes at the tarsometatarsal joints. A moderate plantar spur is noted. Hammertoe deformity is noted of the second digit. Soft tissues are unremarkable. IMPRESSION: Moderate hypertrophic changes without acute bony abnormality. Reviewed, Interpreted and Dictated by Lamont Roe MD Transcribed by Akosua Jesus Authenticated and . [facility]
== END 2023-09-24 23:59 | disposition home or self-care (01) ==
LOC: RAD 12:00
PROVIDERS: PCP Family Medicine; Visit Provider Podiatrist
DX: M20.42 Other hammer toe(s) (acquired), left foot (principal); M20.41 Other hammer toe(s) (acquired), right foot; M79.671 Pain in right foot; M79.672 Pain in left foot
CPT/HCPCS: 73630

== ENCOUNTER 2023-10-01 10:32 | Outpatient (CLI) | payer MEDICARE, SELFPAY ==
--- NOTE | 2023-10-01 10:46 | XR_ITS ---
FINAL REPORT CLINICAL HISTORY: lt wrist pain COMPARISON: 09/05/2023 FINDINGS: 3 images of the left wrist were obtained. There is a subacute nondisplaced fracture of the radial styloid, also seen on the prior film of September 04. There is severe degenerative change of the radial aspect of the wrist. The 8 mm ossification in the soft tissues of the medial wrist remains present and is stable in appearance when compared to the prior films. IMPRESSION: No acute bony abnormality. Subacute nondisplaced fracture of the radial styloid, unchanged since September 04. Reviewed, Interpreted and Dictated by David Dixon III, MD Transcribed by Laureen Graves Authenticated and [facility]
== END 2023-10-01 23:59 | disposition home or self-care (01) ==
LOC: RAD 10:33
PROVIDERS: PCP Family Medicine; Visit Provider Orthopaedic Surgery
DX: M25.532 Pain in left wrist; S52.125A Nondisplaced fracture of head of left radius, initial encounter for closed fracture
CPT/HCPCS: 73110

== ENCOUNTER 2023-10-04 08:54 | Outpatient (CLI) | payer MEDICARE, SELFPAY ==
--- NOTE | 2023-10-04 08:54 | MR_ITS ---
FINAL REPORT CLINICAL HISTORY: Subluxation of metatarsophalangeal joint COMPARISON: None FINDINGS: Multiplanar MR imaging of the right foot was performed without contrast. There is motion on many sequences which somewhat limits overall image quality. There is mild bone marrow edema in the head of the second metatarsal and the proximal phalanx of the second digit. Mild and moderate degenerative changes are present, greatest in the midfoot. There is a hammertoe deformity of the second digit, with overlapping of the first digit. There is medial subluxation and angulation of the second digit. The flexor and extensor tendons are intact. No ligamentous injury is identified. The musculature is intact. The plantar aponeurosis is intact. No soft tissue mass or cyst is identified. IMPRESSION: Hammertoe deformity of the second digit, with medial subluxation and angulation of the second digit. There is also mild bone marrow edema in the metatarsal head and proximal phalanx of the second toe. There are mild and moderate degenerative changes present in the foot, greatest in the mid foot. Reviewed, Interpreted and Dictated by David Dixon III, MD Transcribed by Laureen Graves Authenticated and [facility]
== END 2023-10-04 23:59 | disposition home or self-care (01) ==
LOC: RAD 08:54
PROVIDERS: PCP Family Medicine; Visit Provider Podiatrist
DX: M79.671 Pain in right foot (principal); M20.41 Other hammer toe(s) (acquired), right foot; S99.921S Unspecified injury of right foot, sequela; S93.14 Subluxation of metatarsophalangeal joint
CPT/HCPCS: 73718

== ENCOUNTER 2023-10-29 10:39 | Outpatient (CLI) | payer MEDICARE, SELFPAY ==
--- NOTE | 2023-10-29 10:42 | XR_ITS ---
FINAL REPORT CLINICAL HISTORY: Lt Wrist Pain COMPARISON: 10/01/2023 FINDINGS: Left wrist Three views were obtained. There is a subacute to chronic fracture of the radial styloid with interval healing but the fracture line is still visible. Chronic calcification are seen of the medial wrist. There are severe degenerative changes at the radial aspect of the wrist. There is widening of the scapholunate interval, scapholunate ligament injury is not excluded. IMPRESSION: Subacute to chronic fracture of the radial styloid. Possible scapholunate ligament injury. MRI could further evaluate. Reviewed, Interpreted and Dictated by David Dixon III, MD Transcribed by Rosa Elena Lopes Authenticated and [facility]
== END 2023-10-29 23:59 | disposition home or self-care (01) ==
LOC: RAD 10:40
PROVIDERS: PCP Family Medicine; Visit Provider Orthopaedic Surgery
DX: S52.125A Nondisplaced fracture of head of left radius, initial encounter for closed fracture (principal); M25.532 Pain in left wrist
CPT/HCPCS: 73110

== ENCOUNTER 2024-06-03 14:22 | Outpatient (CLI) | payer MEDICARE, SELFPAY ==
--- NOTE | 2024-06-03 14:26 | XR_ITS ---
FINAL REPORT CLINICAL HISTORY: Foot Pain COMPARISON: 09/24/2023 FINDINGS: Right foot Three views were obtained. There is no fracture or dislocation. There are moderate hypertrophic changes of osteoarthritis of the tarsometatarsal joints, particularly the first tarsometatarsal. There is hammertoe deformity of the second digit. Moderate plantar spur is identified. No soft tissue abnormality is identified. IMPRESSION: Hypertrophic changes of osteoarthritis. Reviewed, Interpreted and Dictated by Lamont Roe MD Transcribed by Rosa Elena Lopes Authenticated and [facility]
--- NOTE | 2024-06-03 14:26 | XR_ITS ---
FINAL REPORT CLINICAL HISTORY: Foot Pain. Pain is worse between 4th and 5th toes. COMPARISON: 09/24/2023 FINDINGS: Left foot Three views were obtained. There is no fracture or dislocation. The joint spaces appear normal. No soft tissue abnormality is identified. IMPRESSION: No acute process. Reviewed, Interpreted and Dictated by Lamont Roe MD Transcribed by Rosa Elena Lopes Authenticated and [facility]
== END 2024-06-03 23:59 | disposition home or self-care (01) ==
LOC: RAD 14:24
PROVIDERS: PCP Family Medicine; Visit Provider Podiatrist
DX: M79.671 Pain in right foot (principal); M79.672 Pain in left foot
CPT/HCPCS: 73630

== ENCOUNTER 2024-06-25 13:00 | Outpatient (RCR) | payer MEDICARE, SELFPAY ==
--- NOTE | 2024-06-11 13:03 | HMH.PTOPEV ---
PT Outpatient Evaluation Rehab PT Outpatient Evaluation Start: 06/11/24 10:56 Freq: Status: Active Protocol: Document 06/11/24 10:56 ARIEL (Rec: 06/11/24 13:03 ARIEL [id number]) E-signed By Lanette Culver, PT Outpatient Therapy Subjective History Subjective History Pt is a 78 y/o female who reports chronic LBP. Pt reports central low back pain that intermittently refers into the right posterior hip to her greater trochanter. Pt also reports occasional sharp shooting pain down the R leg to the toes/foot. Pt denies numbness/tingling or b/b dysfunction. Pt denies n/v, fevers or night sweats. Pt denies trauma or injury. Pt denies having recent imaging of her low back. Pt reports pain is aggravated by standing , walking, transitioning from sitting to standing, and housework. Pt reports pain is improved by bending forward. Medical History: Hyperlipidemia, Hypertension, Osteoarthritis New diagnosis of cancer in past 12 No months? Chief Complaint Pain,Stiff Symptom Type Ache,Dull,Burning Symptoms Relieved By Rest/Positioning,Heat Symptoms Aggravated By Standing,Physical Activity, Walking,Lifting Current Functional Limitations Lifting,Housework,Standing, Walking Symptom Description Constant but Variable Level of pain today (0-10) 6 Pain scale - at its best (0-10) 6 Pain scale - at its worst (0-10) 7 Lumbopelvic Eval Posture Lumbar Spine Posture Standing Position Neutral Assistive device Assistive Devices None / NA Gait Observation General Gait Pattern Observation No Deviations/Normal Palapation tenderness bilateral lumbar spinal tenderness Yes: L3-L5 buttock tenderness Yes: R piriformis, glute med/ min Lumbar/Sacral Palpation Overall Comment 2/4 TTP Accessory Movement L3 bilateral L4 bilateral L5 bilateral S1 bilateral Range of Motion Lumbar Spine Active Flexion Range of 80 Motion (degrees) Lumbar Spine Active Extension Range of 20 Motion (degrees) Left Lumbar Spine Lateral Flexion Active 10 Range of Motion (degrees) Right Lumbar Spine Lateral Flexion 10 Active Range of Motion (degrees) Manual Muscle Test Bilateral Knee Extension Strength Grade 5 Normal Knee Flexion Strength Grade 5 Normal Hip Flexion Strength Grade 4- Good- Hip Abduction Strength Grade 4- Good- Hip Adduction Strength Grade 4- Good- Hip External Rotation Strength Grade 4- Good- Ankle Dorsiflexion Strength Grade 5 Normal DTR Rt Patellar 1+ Lt Patellar 1+ Rt Gastroc/Soleus 1+ Lt Gastroc/Soleus 1+ Altered Sensation Bilateral Comment equal and intact to light touch sensation bilaterally Special Tests Hip Fam (PILAR) Test Positive Right Sciatic Nerve Tension Test Negative Left,Negative Right Unilateral Straight Leg Raise (Lasegue) Negative Left,Negative Right Test Crossed Straight Leg Raise Test Negative Left,Negative Right Sacroiliac Joint Compression Test Positive Right Oswestry Index Section 1 Pain Intensity The pain comes and goes and is severe Section 2 Personal Care (Washing,Dresing) my way of washing or dressing even though it causes some pain Section 3 Lifting lifting heavy weights off the floor, but I can manage light to medium Section 4 Walking I have some pain when walking but it does not increase with distance Section 5 Sitting Pain prevents me from sitting for more than 10 minutes Section 6 Standing I cannot stand more than 10 minutes without increasing pain Section 7 Sleeping I get pain in bed, but it does not prevent me from sleeping well Section 8 Social Life Pain has no significant effect on my social life apart from limiting Section 9 Traveling I get some pain when traveling , but none of my usual forms of travel m Section 10 Changing Degreee of Pain My pain is gradually getting worse Score and Risk Level Oswestry Sc 26 Oswestry Risk Level Severe Disability Outpatient Therapy Assessment Impairments Problems/Impairmments Palpation Tenderness,Impaired Range of Motion,Impaired Strength,Impaired Transfers, Impaired Walking,Impaired Standing,Impaired Sitting, Impaired Lifting,Impaired Household Care,Subjective C/O Pain,Impaired Self Care/Self Management Prognosis Rehab Potential Good Clinical Impression Consistent with Diagnosis Yes Short Term Goals Number of Weeks 3 Improve Transfers Yes: report ability to tranfer from sitting to standing with pain 5/10 or less Decrease Subjective C/O Pain Yes: Improve pain at worst to 5/10 to improve overall QOL Improve Self Care/Self Management Yes Patient to be Ind w/ HEP Yes Product Development Goals Number of Weeks 6 Decreased Palpation Tenderness Yes: 0-1/4 TTP of L3-L5 and R gluteal mm Increase Range of Motion Yes: Improve lumbar LF AROM to at least 15 Increase Strength Yes: Improve BLE MMT to 4-4+/5 grossly to assist with function Restore Ability to Lift Objects to Waist Yes: demonstrate proper Level mechanics to assist with ADLs Improve Oswestry Score Yes: Improve score to 21 or less to improve overall QOL Decrease Subjective C/O Pain Yes: Improve pain at worst to 5/10 to improve overall QOL Outpatient Therapy Plan of Care Treatment Plan May Include Therapeutic Exercise Including Home Yes Exercise Program Manual Therapy Techniques Yes Neuromuscular Re-education Yes Therapeutic Activities to Return to Yes Previous Functional/Work Level ADL/Self Care Education Yes Thermal Modalities Yes Electrical Stimulation Yes Ultrasound/Phonophoresis Yes Iontophoresis Yes Massage Yes Group Therapy for Medicare Yes Eval/Re-Eval Yes Frequency Times per week 2 Duration Number of Weeks 4-6 Addendums This patient is a candidate for social No or vocational rehab? Patient/Guardian verbally acknowledges Yes understanding of treatment program and consents to further treatment? Patient/Guardian verbally acknowledges Yes understanding of diagnosis, prognosis and goals for treatment? Eval Complexity PT Charges 34124 - Low Complexity Shoulder/Elbow Eval Shoulder Objective Measurements Elbow Objective Measurements PHYSICIAN CERTIFICATION: I certify the specified therapy services for Niki Amos are required, authorized, and reviewed every 30 days.
== END 2024-06-25 23:59 | disposition home or self-care (01) ==
LOC: PT 13:00
PROVIDERS: Visit Provider Nurse Practitioner Family
DX: M54.50 Low back pain, unspecified (principal); M54.30 Sciatica, unspecified side
CPT/HCPCS: 97014; 97110; 97163; G0283

== ENCOUNTER 2024-07-23 11:00 | Outpatient (RCR) | payer MEDICARE, SELFPAY ==
--- NOTE | 2024-07-13 12:06 | HMH.RHREAS ---
Rehab Reassessment Rehab OP Re-assessment Start: 06/30/24 13:03 Freq: Status: Active Protocol: Document 07/13/24 11:03 ARIEL (Rec: 07/13/24 12:06 ARIEL [id number]) E-signed By Lanette Culver, PT Oswestry Index Section 1 Pain Intensity The pain comes and goes and is moderate Section 2 Personal Care (Washing,Dresing) my way of washing or dressing even though it causes some pain Section 3 Lifting lifting heavy weights off the floor, but I can manage light to medium Section 4 Walking I cannot walk more than 1/4 mile without increasing pain Section 5 Sitting Pain prevents me from sitting for more than 1/2 hour Section 6 Standing I cannot stand more than 1/2 hour without increasing pain Section 7 Sleeping I get pain in bed, but it does not prevent me from sleeping well Section 8 Social Life Pain has no significant effect on my social life apart from limiting Section 9 Traveling I get extra pain while traveling, but it does not compel me to seek al Section 10 Changing Degreee of Pain My pain fluctuates, but overall is definitely getting better Score and Risk Level Oswestry Sc 23 Oswestry Risk Level Moderate Disability Rehab Re-assessment Subjective Subjective Pt reports she feels 25% improved since starting PT. Pt continues to report R sided low back pain that radiates to the R posterior hip. Pt reports pain at worst as 6/10 on VAS. Pt states pain is aggravated by standing from a seated position, driving, and prolonged walking. Pt reports compliance with HEP with noted improvements in stiffness and strength. Objective Objective Notes Palpation: 2/4 TTP of R flute med/min, piriformis Lumbar AROM: flex 90, ext 20, LF 10 R hip MMT: 4/5 grossly Assessment Progress Assessment Slower Than Expected Assessment Notes Pt has attended 7 PT treatment sessions consisting of aerobic exercise, lumbar mobility, LE stretching, neural glides, hip/core strengthening, manual therapy, modalities and HEP with good tolerance. Pt demonstrated improved KARLENE score, lumbar flex AROM, and RLE strength this date compared to the initial evaluation. Pt continues to report moderate- severe right sided low back pain that refers into the hip with activities such as sit to stand transfer, driving, walking and lifting. Overall the pt would continue to benefit from skilled PT to further improve subjective report of pain, lumbar mobility, hip/core strength and functional activity tolerance to improve overall QOL. Patient goals met ST/4 Goals Not Met p! at worst, p! with sit to stand, LTG Revised Goals n/a Plan Plan Continue POC. Consider dry needling of hip musculature. Frequency of Therapy 2x/week Duration of therapy 4 more weeks Time and Billing Re-Eval Time 12 Re-Eval Billing Units 0 Charge for PT reassessment? No Charge for OT reassessment? No PHYSICIAN CERTIFICATION: I certify the specified therapy services for Niki Amos are required, authorized, and reviewed every 30 days.
== END 2024-07-23 23:59 | disposition home or self-care (01) ==
LOC: PT 11:00
PROVIDERS: Visit Provider Nurse Practitioner Family
DX: M54.40 Lumbago with sciatica, unspecified side (principal)
CPT/HCPCS: 97014; 97110; 97140; G0283

== ENCOUNTER 2024-07-24 10:56 | Outpatient (RCR) | payer MEDICARE, SELFPAY | END 2024-07-24 23:59 | disposition home or self-care (01) | LOC: OT 10:56 | PROVIDERS: PCP Family Medicine; Visit Provider Nurse Practitioner Family | DX: R29.898 Other symptoms and signs involving the musculoskeletal system (principal); R53.1 Weakness; R20.0 Anesthesia of skin | CPT/HCPCS: 97014; 97165; G0283 ==

== ENCOUNTER 2024-08-11 11:00 | Outpatient (RCR) | payer MEDICARE, SELFPAY ==
--- NOTE | 2024-08-11 11:50 | HMH.RHREAS ---
Rehab Reassessment Rehab OP Re-assessment Start: 07/30/24 11:03 Freq: Status: Active Protocol: Document 08/11/24 10:58 SALVADORElodia (Rec: 08/11/24 11:50 ARIEL [id number]) E-signed By Lanette Culver, PT Oswestry Index Section 1 Pain Intensity The pain comes and goes and is moderate Section 2 Personal Care (Washing,Dresing) change my way of washing or dressing in order to avoid pain Section 3 Lifting I can lift heavy weights, but it gives me extra pain Section 4 Walking I have some pain when walking but it does not increase with distance Section 5 Sitting I can sit in my favorite chair for as long as I like Section 6 Standing I have some pain on standing, but it does not increase with time Section 7 Sleeping I get pain in bed, but it does not prevent me from sleeping well Section 8 Social Life My social life is normal and gives me no extra pain Section 9 Traveling I get extra pain while traveling, but it does not compel me to seek al Section 10 Changing Degreee of Pain My pain fluctuates, but overall is definitely getting better Score and Risk Level Oswestry Sc 10 Oswestry Risk Level Mild Disability Rehab Re-assessment Subjective Subjective Pt reports she feels 75-80% improved since starting PT. Pt reports right-sided low back pain is intermittent in nature . She rates pain 3/10 on average and 7/10 at worst with lifting heavy objects. Pt reports she did get a TENS unit and a massage which provides her with short-term relief if pain is flared up. Pt reports compliance with HEP which helps with symptoms. Objective Objective Notes Palpation: 05/02 TTP of Lumbar AROM: flex 90, ext 25, LF 15 RLE: 4+/5 grossly Assessment Progress Assessment Progressing as Expected Assessment Notes Pt has attended PT treatment sessions consisting of aerobic exercise, lumbar mobility, LE stretching, core/LE strengthening, manual therapy, dry needling, and HEP with good tolerance. Pt demonstrated improved KARLENE score, lumbar mobility, LE strength and functional activity tolerance this date compared to the initial evaluation. Overall the pt met most PT goals and is appropriate to discharge to independent [facility] at this time. Patient goals met ST/ LT/6 Goals Not Met p! at worst Revised Goals n/a Plan Plan Discharge to independent [facility] Time and Billing Re-Eval Time 10 Re-Eval Billing Units 0 Charge for PT reassessment? No Charge for OT reassessment? No PHYSICIAN CERTIFICATION: I certify the specified therapy services for Niki Vaughan Bette are required, authorized, and reviewed every 30 days.
== END 2024-08-11 23:59 | disposition home or self-care (01) ==
LOC: PT 11:00
PROVIDERS: Visit Provider Nurse Practitioner Family
DX: M54.50 Low back pain, unspecified (principal); M54.30 Sciatica, unspecified side
CPT/HCPCS: 20560; 97014; 97110; 97140; G0283

== ENCOUNTER 2025-01-14 08:46 | Outpatient (CLI) | payer MEDICARE, SELFPAY ==
--- NOTE | 2025-01-14 08:48 | XR_ITS ---
FINAL REPORT CLINICAL HISTORY: SCREENING COMPARISON: None FINDINGS: Using L1-4, the bone mineral density of the spine is 1.041 g/cm2, corresponding to T-score of -0.1. Using the left hip, the bone mineral density of the femoral neck is 0.788 g/cm2, corresponding to a T-score of -1.3. Using the right hip, the bone mineral density of the femoral neck is 0.770 g/cm2, corresponding to a T-score of -1.4. NOTE: T-score: Standard deviation compared with peak bone mass of young adult mean. *Following the recommendations of the International Society of Bone densitometry, classification of hip BMD is based on the lower of two T-scores; total hip or femoral neck. IMPRESSION: Diminished bone mineral density of the bilateral hips, corresponding to a diagnosis of osteopenia. Normal bone mineral density of the lumbar spine. Reviewed, Interpreted and Dictated by Booker Pang MD Transcribed by Laureen Graves Authenticated and [facility]
--- OUTSIDE RECORDS SUMMARY | 2025-01-14 09:05 | XMS_ITS | Referral Summary ---
Author Organization [employer] ([place], [place], [place], [place]) Address [address] [place] [address] Care Team Providers Care Solid Waste Management Engineer Name Role Phone Unavailable Primary Care Provider Unavailabl e Social History Tobacco Use Types Packs/Day Years Used Date Smoking Tobacco: Never Assessed Comments Unknown Sex and Gender Information Value Date Recorded Sex Assigned at Not on file Legal Sex Female 4:23 PM CDT Gender Identity Not on file Sexual Orientation Not on file Plan of Treatment Not on file
--- OUTSIDE RECORDS SUMMARY | 2025-01-14 09:05 | XMS_ITS | Clinical Summary ---
Author Organization [facility] Address [address] [place] [address] Care Team Providers Care Veneer Sorter Name Role Phone Anthony Seth MD Primary Care Provider [phone] Allergies No known active allergies Medications azelastine (Astelin) 0.1 % nasal spray if needed. 3 Active fluticasone (Flonase) 50 MCG/ACT nasal spray Administer 2 sprays into affected nostril(s) 1 (one) time each day. Active hydroxychloroqu ine (Plaquenil) 200 MG tablet Take 1 tablet (200 mg) by mouth 1 (one) time each day. Active lisinopril-hydr oCHLOROthiazide 20-12.5 MG tablet Take 1 tablet by mouth 1 (one) time each day. 4 Active loratadine (Claritin) 10 MG tablet Take 1 tablet (10 mg) by mouth 1 (one) time each day. Active montelukast (Singulair) 10 MG tablet Take 1 tablet (10 mg) by mouth 1 (one) time each day. Active omeprazole (PriLOSEC) [address] capsule Take 1 capsule (20 mg) by mouth 1 (one) time each day. Active simvastatin (Zocor) 20 MG tablet Take 1 tablet (20 mg) by mouth 1 (one) time each day. Active coenzyme Q-10 200 MG capsule Take 1 capsule (200 mg) by mouth 1 (one) time each day. Active calcium 500 MG tablet Take 1 tablet (500 mg) by mouth 2 (two) times a day with meals. Active Immunizations Immunization Administration Dates Next Due Influenza Vaccine, Quadrivalent, Adjuvanted 01/28,03/08/2021 Influenza, high-dose, quadrivalent 02/08/2020 Influenza, seasonal, injectable, preservative fr ee 02/22/2016 Influenza, trivalent, adjuvanted 03/02/2017 Moderna Covid-19 Vaccine 12y +, Alejandro Protein, Preservative free 01/15/2023 Pneumococcal Polysaccharide PPV23 11/20/2017 Tdap 09/05/2023,11/05/2018 Zoster, live 12/21/2015 Family History Medical History Relation Name Comments Hypertension Brother 1 JARAD Prostate cancer Brother 1 JARAD Arthritis Brother 2 EUEGENE Hypertension Brother 2 EUEGENE Arthritis Brother 3 DARRYL Hypertension Brother 3 DARRYL Rheum arthritis Brother 3 DARRYL Joint pain/problems Brother 4 BRITTANY Prostate cancer Brother 4 BRITTANY Arthritis Father Lung cancer Father Osteoarthritis Father Heart disease Maternal Grandfather Heart failure Maternal Grandfather Dementia Maternal Grandmother Aneurysm Mother Blood clots Mother Cancer Mother Hyperlipidemia Mother Hypertension Mother Heart attack Paternal Grandfather Aneurysm Sister Blood clots Sister Heart attack Sister Relation Name Status Comments Brother 1 JARAD Alive Brother 2 EUEGENE Alive Brother 3 DARRYL Alive Brother 4 BRITTANY Alive Father Maternal Grandfather Maternal Grandmother Mother Paternal Grandfather Paternal Grandmother Sister Social History Tobacco Use Types Packs/Day Years Used Date Smoking Tobacco: Never Passive Smoke Exposure: Never Smokeless Tobacco: Never Tobacco Cessation:Counseling Given: Not Answered Alcohol Use Standard Drinks/Week Comments Never 0 (1 standard drink = 0.6 oz pur e alcohol) PHQ-2 Answer Date Recorded Patient Health Questionnaire-2 Score 0 12/19/2023 Comments No Sex and Gender Information Value Date Recorded Sex Assigned at Not on file Legal Sex Female 8:48 PM EDT Gender Identity Not on file Sexual Orientation Not on file Last Filed Vital Signs Vital Sign Reading Time Taken Comments Blood Pressure 125/73 12/19/2023 11:32 AM EDT Pulse 74 12/19/2023 11:32 AM EDT Temperature 36.4 C (97.6 F) 12/19/2023 11:32 AM EDT Respiratory Rate 16 12/19/2023 11:32 AM EDT Oxygen Saturation 98% 12/19/2023 11:32 AM EDT Inhaled Oxygen Concentration - - Weight 95.5 kg (210 lb 8.6 oz) 12/19/2023 11:32 AM EDT Height 175.3 cm (5' 9 ) 12/19/2023 11:32 AM EDT Body Mass Index 31.09 12/19/2023 11:32 AM EDT Plan of Treatment Health Maintenance Due Date Last Done Comments [facility]-Bone Density Scan 1945 [facility]-Depression Screening 1945 [facility]-/Child/Adol SDOH Screenings 1945 UKY- SDOH Screenings 11/26/1965 UKY-Adult SDOH Screenings 11/26/1965 UKY-Zoster Vaccines (2 of 3) 02/15/2016 12/21/2015 UKY-Pneumococcal Vaccine: 50+ Years (2 of 2 - PCV) 11/20/2018 11/20/2017 UKY-RSV Vaccine: 60+ Years or (1 - 1-dose 75+ series) 11/26/2022 [id number] Vaccine ( - 2024- season) 2024 01/15/2023, 05/09/2022, 01/17/2022, Additional history exists [facility]-Influenza Vaccine (#1) 12/28/202402/18, 03/08/2021, 02/08/2020, Additional history exists [facility]Y-DTaP,Tdap,and Td Vaccines (3 - Td or Tdap) 09/04/2033 09/05/2023, 11/05/2018 HPV Vaccines Aged Out No longer eligi ble based on patient's age to complete this topic UKY-HIB Vaccines Aged Out No longer e ligible based on patient's age to complete this topic UKY-Hepatitis A Vaccines Aged Out No longer eligible based on patient's age to complete this topic UKY-IPV Vaccines Aged Out No longer e ligible based on patient's age to complete this topic UKY-Rotavirus Vaccines Aged Out No lo nger eligible based on patient's age to complete this topic Insurance [facility] [place] [id number] [facility] Care Teams Veneer Sorter Relationship Specialty Start Date End Date Anthony Seth MD [address] [place] [address] PCP - General 09/09/20
--- OUTSIDE RECORDS SUMMARY | 2025-01-14 09:05 | XMS_ITS | Clinical Summary ---
[facility] Address [address] [place] [address] Care Team Providers Care Bladder Cleaner Name Role Phone Anthony Seth MD Primary Care Provider [phone] Allergies No known active allergies Medications loratadine (CLARITIN) 10 MG tablet Take 1 tablet by mouth Daily. Active simvastatin (ZOCOR) 20 MG tablet Take 1 tablet by mouth Every Night. Active montelukast (SINGULAIR) 10 MG tablet Take 1 tablet by mouth Every Night. Active omeprazole (priLOSEC) 20 MG capsule Take 1 capsule by mouth Daily. Active hydroxychloroqu ine (PLAQUENIL) 200 MG tablet Take 1 tablet by mouth 2 (Two) Times a Day. Active fluticasone (FLONASE) 50 MCG/ACT nasal spray 2 sprays into the nostril(s) as directed by provider Daily. Active ALLERGY SERUM INJECTION Inject under the skin into the appropriate area as directed Every 30 (Thirty) Days. Active lisinopril-hydr ochlorothiazide (PRINZIDE,ZESTO RETIC) 20-12.5 MG per tablet Take 1 tablet by mouth Daily. Active Active Problems Problem Noted Date Diagnosed Date Essential hypertension 05/21/2017 Dyslipidemia 05/21/2017 Paroxysmal atrial fibrillation 05/21/2017 Family History Medical History Relation Name Comments Colon cancer Father Heart disease Mother Hypertension Mother Breast cancer Neg Hx Ovarian cancer Neg Hx Relation Name Status Comments Father Mother Bone Marrow Can cer Social History Tobacco Use Types Packs/Day Years Used Date Smoking Tobacco: Never Passive Smoke Exposure: Never Smokeless Tobacco: Never Tobacco Cessation:Counseling Given: Not Answered Alcohol Use Standard Drinks/Week Comments No 0 (1 standard drink = 0.6 oz pur e alcohol) Comments No Sex and Gender Information Value Date Recorded Sex Assigned at Not on file Legal Sex Female 12:59 PM EDT Gender Identity Not on file Sexual Orientation Not on file Last Filed Vital Signs Vital Sign Reading Time Taken Comments Blood Pressure 140/70 12/05/2023 3:42 PM EDT Pulse 70 12/05/2023 3:42 PM EDT Temperature 36.1 C (97 F) 03/15/2016 1:53 PM EST Respiratory Rate - - Oxygen Saturation 95% 12/05/2023 3:42 PM EDT Inhaled Oxygen Concentration - - Weight 95.9 kg (211 lb 8 oz) 12/05/2023 3:42 PM EDT Height 175.3 cm (5' 9 ) 12/05/2023 3:42 PM EDT Body Mass Index 31.23 12/05/2023 3:42 PM EDT Plan of Treatment Upcoming Encounters Date Type Department Care Team (Late st Contact Info) Description 02/18/2025 11:30 AM EDT Office Visit [facility] [address] [place] [address] [place] [address] Yunier Red MD [address] [place] [address] Health Maintenance Due Date Last Done Comments DXA SCAN 1945 LIPID PANEL 1945 COLOGUARD 11/26/1992 COLON CANCER SCREENING 5 YEA R SIGMOIDOSCOPY 11/26/1992 CT COLONOGRAPHY 11/26/1992 FECAL OCCULT BLOOD TEST 11/26/1992 FIT Testing (1 year) 11/26/1992 ZOSTER VACCINE (2 of 3) 02/15/2016 12/21/2015 ANNUAL WELLNESS VISIT 05/21/2017 HEPATITIS C SCREENING 05/21/2017 Pneumococcal Vaccine 50+ (2 of 2 - PCV) 11/20/2018 11/20/2017 RSV Vaccine - Adults (1 - 1- dose 75+ series) 11/26/2022 INFLUENZA VACCINE 2024 02/19/2024, , 03/08/2021, Additional history exists COVID-19 Vaccine (2023-2 5 season) 2024 02/13/2024, 01/15/2023, 05/09/2022, Additional history exists TDAP/TD VACCINES (3 - Td or Tdap) 09/04/2033 024, 11/05/2018 COLONOSCOPY 11/20/2033 11/21/2023, 07/15/2018 COLORECTAL CANCER SCREENING 11/20/2033 MAMMOGRAM Discontinued 07/11/2024, 06/27, 07/02/2023, Additional history exists Procedures Procedure Name Priority Date/Time Associated Diagnosis Comments MAMMO SCREENING DIGITAL TOMOSYNTHESIS BILATERAL W CAD Routine 07/06/2024 1:27 PM EDT Screening mammogram for breast cancer SCANNED - COLONOSCOPY 11/21/2023 from Last 3 Months or Most Recently Relevant to Health Maintenance Results * Mammo Screening Digital Tomosynthesis Bilateral With CAD (07/06/2024 1:27 PM EDT) Anatomical Region Laterality Modality Breast N/A Mammography 07/11/2024 2:33 PM EDT Impressions 07/11/2024 2:38 PM EDT No findings suspicious for malignancy. ACR BI-RADS CATEGORY: 1, NEGATIVE RECOMMENDATION: Yearly mammogram, yearly clinical breast exam, and encourage self breast awareness. CAD was used. The standard false negative rate of mammography is between 10% and 25%. Complex patterns or increased breast density will markedly elevate the false negative rate of mammography. A letter, in lay terminology, with the results of this exam will be mailed to the patient. If there is a palpable area of concern, biopsy should be considered regardless of imaging findings. 07/11/2024 2:38 PM by Annie Ruiz MD on Narrative 07/11/2024 2:38 PM EDT ROUTINE DIGITAL SCREENING MAMMOGRAM WITH TOMOSYNTHESIS HISTORY: Routine screening. IMAGE COMPARISON: Extending to 2020. TECHNIQUE: Low dose full field digital breast tomosynthesis imaging was performed with 2D and 3D acquisitions consisting of bilateral CC and MLO views. FINDINGS: The breasts are predominantly adipose tissue. The fibroglandular pattern appears stable. There is no mass, worrisome microcalcifications, or architectural distortion to suggest development of malignancy. Anthony Seth MD IMG MAMMOGRAPHY ORDERABLE S Final Result * Colonoscopy, Scan (11/21/2023) Hank Stratton MD CHART REVIEW TABS Final Res ult from Last 3 Months or Most Recently Relevant to Health Maintenance Insurance [facility] Medicare Advantage GROUP PPO [place] [id number] Care Teams Bladder Cleaner Relationship Specialty Start Date End Date Anthony Seth MD [address] [place] [address] PCP - General Family Medicine 10/02/21
--- OUTSIDE RECORDS SUMMARY | 2025-01-14 09:05 | XMS_ITS | Clinical Summary ---
Author Organization [employer] ([place], [place], [place], [place]) Address [address] [place] [address] Care Team Providers Care Assembler Dc Field Yoke Name Role Phone Unavailable Primary Care Provider [...]
== END 2025-01-14 23:59 | disposition home or self-care (01) ==
LOC: RAD 08:46
PROVIDERS: PCP Family Medicine; Visit Provider Nurse Practitioner Family
DX: M85.852 Other specified disorders of bone density and structure, left thigh (principal); M85.851 Other specified disorders of bone density and structure, right thigh; Z13.820 Encounter for screening for osteoporosis; Z78.0 Asymptomatic menopausal state
CPT/HCPCS: 77080

== ENCOUNTER 2025-02-12 13:51 | Emergency (ER) | payer MEDICARE, SELFPAY ==
[2025-02-12] VITALS (9 sets, daily range): BP systolic 128–192; BP diastolic 62–93; PULSE 66–85; RESP 12–16; TEMP 36.9–37.1; O2SAT 95–100; BMI 30.7
--- NOTE | 2025-02-12 14:14 | ECG_ITS ---
APPROVED REPORT Exam: Resting ECG HR:83 bpm ECG Measurements Heart Rate 83 AXES MI 197 P 54 QRSd 89 QRS -34 QT 376 T 45 QTc 416 Conclusion Normal sinus rhythm without acute ST or T wave changes concerning for ischemia Electronically signed by : Savita Tavarez, 02/12/2025 22:45:50
--- OUTSIDE RECORDS SUMMARY | 2025-02-12 14:37 | XMS_ITS | Referral Summary ---
Author Organization [employer] ([place], [place], [place], [place]) Address [address] [place] [address] Care Team Providers Care Certified Pharmacy Technician Name Role Phone Unavailable Primary Care Provider [...]
--- OUTSIDE RECORDS SUMMARY | 2025-02-12 14:37 | XMS_ITS | Clinical Summary ---
[facility] Address [address] [place] [address] Care Team Providers Care Shell Coremaker Name Role Phone Anthony Seth MD Primary Care Provider [phone] Allergies No known active allergies Medications loratadine [...] Description 02/18/2025 11:30 AM EDT Office Visit [facility] [address] [place] [address] [place] [address] Yunier Red MD [address] [place] [address] Health Maintenance Due Date Last [...] , 03/08/2021, Additional history exists COVID-19 Vaccine (9 - Pfizer risk season) 2024 02/13/2024, 01/15/2023, 05/09/2022, Additional history [...] Most Recently Relevant to Health Maintenance Insurance [facility] Medicare Advantage GROUP PPO [place] [id number] Care Teams Shell Coremaker Relationship Specialty Start Date End Date Anthony Seth MD [address] [facility] [address] [place] [address] PCP - General Family Medicine 10/02/21
--- OUTSIDE RECORDS SUMMARY | 2025-02-12 14:37 | XMS_ITS | Clinical Summary ---
Author Organization [employer] ([place], [place], [place], [place]) Address [address] [place] [address] Care Team Providers Care Information Systems Director Name Role Phone Unavailable Primary Care Provider [...]
--- OUTSIDE RECORDS SUMMARY | 2025-02-12 14:37 | XMS_ITS | Clinical Summary ---
Author Organization [facility] Address [address] [place] [address] Care Team Providers Care Truck Trailer Final Inspector Name Role Phone Anthony Seth MD Primary Care Provider [phone] Allergies No known active allergies Medications azelastine [...] [facility]Y-Bone Density Scan 1945 [facility]-Depression Screening 1945 [facility]-Infant/Child/Adol SDOH Screenings 1945 UKY- SDOH Screenings 11/26/1965 UKY-Adult SDOH Screenings 11/26/1965 UKY-Zoster Vaccines (2 of 3) 02/15/2016 12/21/2015 UKY-Pneumococcal Vaccine: 50+ Years (2 of 2 - PCV) 11/20/2018 11/20/2017 [facility]Y-RSV Vaccine: 60+ Years or (1 - 1-dose 75+ series) 11/26/2022 [id number] Vaccine ( - 2024- season) 2024 01/15/2023, [...] patient's age to complete this topic Insurance [facility] [place] [id number] [facility] Care Teams Truck Trailer Final Inspector Relationship Specialty Start Date End Date Anthony Seth MD [address] [place] [address] PCP - General 09/09/20
--- NOTE | 2025-02-12 14:43 | CT_ITS ---
FINAL REPORT TECHNIQUE: Axial imaging of the chest is obtained after the administration of contrast. 3-D MIP reformatted images were also obtained and reviewed per PE protocol. This study was performed with techniques to keep radiation doses as low as reasonably achievable (ALARA). Individualized dose reduction techniques using automated exposure control or adjustment of mA and/or kV according to the patient's size were employed. CLINICAL HISTORY: L superior chest pain rad to neck COMPARISON: None FINDINGS: The pulmonary arteries are well filled. There is no evidence of pulmonary embolus. There is no aortic dissection. Heart size is normal. There is no mediastinal, hilar, or axillary lymphadenopathy. There are no suspicious nodules or masses. There is no pleural or pericardial effusion. Limited evaluation of the upper abdomen is without acute abnormality. No acute osseous abnormality. IMPRESSION: No evidence of pulmonary embolism or aortic dissection. Reviewed, Interpreted and Dictated by Dsetiny Villalpando MD Transcribed by Laureen Graves Authenticated and [facility]
--- NOTE | 2025-02-12 14:43 | CT_ITS ---
FINAL REPORT TECHNIQUE: Thin section axial images were obtained from skull base to vertex without contrast. Coronal reconstruction images were obtained from the axial data. Exam was performed using dose reduction techniques such as automated exposure control, adjustment of the mA and kV according to patient size, and use of iterative reconstruction technique. CLINICAL HISTORY: SHEETS, HTN COMPARISON: 09/05/2023 FINDINGS: Mild atrophy is noted. There is no mass effect or midline shift. There is no hydrocephalus. There is no intracranial hemorrhage. The posterior fossa is without acute abnormality. The basilar cisterns are preserved. The soft tissues are without acute abnormality. No acute osseous abnormality is identified. IMPRESSION: No acute intracranial abnormality. Reviewed, Interpreted and Dictated by Destiny Villalpando MD Transcribed by Akosua Jesus Authenticated and [facility]
--- NOTE | 2025-02-12 14:43 | CT_ITS ---
FINAL REPORT TECHNIQUE: Thin section axial images were obtained from the aortic arch to the skull base after intravenous contrast injection per CTA protocol. Multiplanar reconstruction images were obtained. Exam was performed using dose reduction techniques and the ALARA principle. CLINICAL HISTORY: L neck pain, HTN COMPARISON: None FINDINGS: CTA NECK: Aortic arch: There is a normal three-vessel configuration to the aortic arch. There is no significant stenosis of the great vessels at their origins. Right carotid artery: The right common carotid artery is patent without stenosis. The cervical portions of the right internal carotid artery are patent without stenosis. 0% stenosis per NASCET criteria. Left carotid artery: The left common carotid artery is patent without stenosis. The cervical portions of the left internal carotid artery are patent without stenosis. 0% stenosis per NASCET criteria. Vertebral arteries: The vertebral arteries are patent. No significant stenosis. Other soft tissues: No acute findings. IMPRESSION: No evidence of large vessel occlusion or significant stenosis. Reviewed, Interpreted and Dictated by Destiny Villalpando MD Transcribed by Akosua Jesus Authenticated and [facility]
--- NOTE | 2025-02-12 14:45 | CT_ITS ---
FINAL REPORT TECHNIQUE: Thin section axial images are obtained through the brain after intravenous contrast injection. Multiplanar reconstructions were obtained from the axial data. Exam was performed using dose reduction techniques such as automated exposure control, adjustment of the mA and kV according to patient size, and use of iterative reconstruction technique. CLINICAL HISTORY: neck pain SHEETS HTN COMPARISON: None FINDINGS: The intracerebral portions of the carotid arteries are patent. The anterior and middle cerebral arteries are patent without stenosis or occlusion. The posterior cerebral arteries are patent. The basilar artery is patent. The vertebral arteries are patent. There is no significant stenosis, aneurysm, or AVM. IMPRESSION: Unremarkable CT angiogram of the intracerebral vasculature. Reviewed, Interpreted and Dictated by Destiny Villalpando MD Transcribed by Akosua Jesus Authenticated and [facility]
[2025-02-12] MEDS: ASPIRIN 81MG CHEWABLE TABLET 324 MG PO (14:51)
[2025-02-12 14:54] LABS: Hematocrit 38.9 % (37.0-47.0); Hemoglobin 13.8 g/dL (12.2-16.2); Immature Granulocytes % 0.3 %; Mean Corpuscular HGB Conc 35.5 g/dL (31.8-35.4); Mean Corpuscular Hemoglobin 30.7 pg (27.0-31.2); Mean Corpuscular Volume 86.6 fl (81-99); Nucleated Red Blood Cells % 0 %; Platelet Count 277 K/mm3 (142-424); Red Blood Count 4.49 M/mm3 (4.20-5.40); Red Cell Distribution Width-SD 38.5 fL; White Blood Count 6.6 K/mm3 (4.8-10.8)
[2025-02-12 15:04] LABS: Albumin Level 4.0 g/dl (3.5-5.0); Chloride 92 mmol/L (98-107); Potassium 3.5 mmoL/L (3.5-5.1); Sodium 127 mmol/L (136-145)
[2025-02-12 15:07] LABS: Alanine Aminotransferase 22 U/L (12-78); Albumin/Globulin Ratio 1.5 (1.1-1.8); Alkaline Phosphatase 99 U/L (38-126); Anion Gap 10.5 mEq/L (5-15); Aspartate Amino Transferase 39 U/L (14-36); Bilirubin,Total 0.5 mg/dl (0.2-1.3); Blood Urea Nitrogen 8 mg/dl (7-17); Calcium 8.6 mg/dl (8.4-10.2); Carbon Dioxide 28 mmol/L (22.0-30.0); Creatinine Clearance Estimated 70 mL/min (50-200); Creatinine,Serum 0.50 mg/dl (0.52-1.04); Estimated Glomerular Filt Rate 120 ml/min (>60); GFR (African American) 145 ML/MIN (>60); Globulin 2.6 g/dL (1.3-3.2); Glucose 123 mg/dl (74-100); Total Protein,Serum 6.6 g/dl (6.3-8.2)
[2025-02-12 15:22] LABS: Troponin I < 0.01 ng/ml (0.00-0.034)
--- NOTE | 2025-02-12 15:37 | [facility].EDCP ---
Discharge Plan Disposition Patient Disposition: Home, Self-Care Condition: Good Prescriptions Prescriptions: No Action cholecalciferol (vitamin D3) 50 mcg (2,000 unit) capsule 50 mcg PO DAILY PRN ascorbate calcium (vitamin C) 500 mg tablet 1,200 mg PO DAILY PRN omeprazole 20 mg capsule,delayed release(DR/EC) 20 mg PO simvastatin 20 mg tablet 20 mg PO hydroxychloroquine 200 mg tablet 200 mg PO montelukast 10 mg tablet 10 mg PO levocetirizine 5 mg tablet 5 mg PO DAILY Patient Comments: TAKE 1 TABLET BY MOUTH EVERY DAY azelastine 137 mcg (0.1 %) spray,non-aerosol intranasal Patient Comments: USE 1 TO 2 SPRAYS IN EACH NOSTRIL TWICE DAILY NEEDED epinephrine 0.3 mg/0.3 mL auto-injector IM PRN Patient Comments: USE DIRECTED FOR ACUTE ALLERGIC REACTION lisinopril-hydrochlorothiazide 20-12.5 mg tablet 1 tab PO DAILY Qty: 90 3RF Referrals Follow up/Referrals: Booker Seth MD [Primary Care Provider, Medical] - See instructions Activity Restrictions/Add. Instructions Additional Instructions/Restrictions: I would like you to take your blood pressure first thing in the morning when you wake up and keep a log of this so that way when you follow-up with your primary care provider in 1 week, they will know if you need a blood pressure medicine adjustment. Return to the emergency department for any acute or worsening chest pain or any other symtpoms that are concerning to you. Clinical Impressions Clinical Impression: Chest pain Print Language Print Language: Welsh Discharge ED Provider: Savita Tavarez HPI <Roosevelt Leiva MD - Last Filed: 02/12/25 15:45> General Chief Complaint: Chest Pain Stated Complaint: L shoulder pain, L jaw pain, tingling in arms Time Seen by Provider: 02/12/25 13:59 Mode of Arrival: Ambulatory Source of Information: Patient Description of Symptoms (Recalled from ER Triage Doc. by RN): Pt presents for evaluation of fatigue in the afternoons. Pt states she has been having a pain to her left chest that radiated to her left jaw, and neck. That started about 1.5 hours ago, but has now resolved History of Present Illness HPI narrative: Patient is a 79-year-old female past medical history of previous atrial fibrillation status post multiple ablations not currently on anticoagulation given that she is in sinus rhythm, osteoarthritis who presents emergency department for evaluation of intermittent left superior chest pain and neck pain. History is obtained by patient and family at bedside. Patient had left superior chest pain radiating up into her neck and jaw, bifrontal holocranial headache without vision changes reported that happened approximately a couple hours prior to arrival. It was transient and she does not have any current significant chest pain or jaw pain however they became concerned to present here for continued evaluation. Patient does have a history of high blood pressure and took her medications this morning as prescribed. No other acute complaints. Please note that above description of symptoms, in this electronic medical record under categorization of recalled from ER triage doctor by RN are reflective of an initial nursing assessment, however, is not reflective of my full history and physical exam that was personally taken and clarified. Consequentially, this preceding description of symptoms, which may include the patient's categorized chief complaint in the EMR, do not reflect my personal clinical impression, and the ultimate description of history of present illness and patient stated complaints should be deferred to this section of the note. Unless stated otherwise or congruent with this section of the note, additional signs, symptoms, or incongruence should be interpreted as inaccurate with my clinical impression. Related Data Home Medications ?Medication ?Instructions ?Recorded ?Confirmed hydroxychloroquine 200 mg tablet 200 mg PO 03/14/20 12/31/24 montelukast 10 mg tablet 10 mg PO 03/14/20 12/31/24 omeprazole 20 mg capsule,delayed 20 mg PO 03/14/20 12/31/24 release simvastatin 20 mg tablet 20 mg PO 03/14/20 12/31/24 cholecalciferol (vitamin D3) 50 50 mcg PO DAILY PRN 09/24/23 12/31/24 mcg (2,000 unit) capsule levocetirizine 5 mg tablet 5 mg PO DAILY 10/15/23 12/31/24 ascorbate calcium (vitamin C) 500 1,200 mg PO DAILY PRN 09/09/24 12/31/24 mg tablet azelastine 137 mcg (0.1 %) nasal intranasal 12/31/24 12/31/24 spray epinephrine 0.3 mg/0.3 mL IM PRN 12/31/24 12/31/24 injection, auto-injector Previous Rx's ?Medication ?Instructions ?Recorded lisinopril 20 1 tab PO DAILY #90 tabs 07/01/ mg-hydrochlorothiazide 12.5 mg tablet Allergies Allergy/AdvReac Type Severity Reaction Status Date / Time No Known Allergies Allergy Verified 12/31/24 09:57 PFS <Roosevelt Leiva MD - Last Filed: 02/12/25 15:45> [facility] Disclaimer: The information contained in this section may have been updated after the patient was seen, as this information can be updated by other users. Medical History GERD (gastroesophageal reflux disease) Allergic rhinitis HTN (hypertension) Diastolic dysfunction Atypical angina Abnormal electrocardiogram [ECG] [EKG] Osteoarthritis Social History Smoking Status: Never smoker alcohol intake: never current occupational status: employed Travel in the last 8 weeks?: None Have you lived/traveled outside [place] in past 30 days?: No Contact w/someone who lives/traveled outside US past 30 days?: No Exposure to someone with infectious disease in past 14 days?: No Do you have a fever (greater than 100.4 F or 38 C)?: No Have you tested positive for COVID-19?: No Exposed to someone with COVID-19 in past 14 days?: No Do you have a sore throat?: No Do you have a cough?: No Do you have any weakness?: No Do you have any diarrhea?: No Are you experiencing any unusual bleeding?: No Do you have any muscle aches/pain?: No Do you have any abdominal pain?: No Are you experiencing loss of taste or smell?: No Other Medical History Have you received the Pneumonia Vaccine: Yes <Roosevelt Leiva MD - Last Filed: 02/12/25 15:45> ROS Obtained: Yes Systems reviewed as appropriate & no additional complaints except as documented Physical Exam <Roosevelt Leiva MD - Last Filed: 02/12/25 15:45> General General appearance: alert and in no apparent distress Head Head exam: atraumatic and normocephalic Eye Eye exam: Present PERRL and EOMI ENT ENT exam: Present mucous membranes moist Neck Neck exam: Present normal inspection Chest Chest inspection: Present normal inspection and symmetric chest wall rise Respiratory Respiratory exam: Present normal lung sounds bilaterally; Absent respiratory distress Cardiovascular Cardiovascular exam: Present regular rate and normal rhythm Abdominal Exam Abdominal exam: Present soft; Absent tenderness Extremities Exam Extremities exam: Present normal inspection; Absent edema Neurological Exam Neurological exam: Present alert and CN II-XII intact Psychiatric Psychiatric exam: Present normal affect Skin Skin exam: Present warm and dry HEART Score <Roosevelt Leiva MD - Last Filed: 02/12/25 15:45> HEART Score HEART Score assessment performed?: Yes History (anamnesis): Moderately suspicious ECG: Non-specific disturbance Age: >65 years Risk factors: 1-2 risk factors Troponin: </= normal limit HEART Score: 5 <Savita Tavarez DO - Last Filed: 02/12/25 18:36> HEART Score HEART Score: 5 Critical Care <Roosevelt Leiva MD - Last Filed: 02/12/25 15:45> Critical Care Time Critical Care Time: No Medical Decision Making <Roosevelt Leiva MD - Last Filed: 02/12/25 15:45> Giovanni Inquiry Pt receiving controlled substance: No Vital Signs Vital Signs: 02/12/25 14:07 02/12/25 14:18 02/12/25 14:43 Temperature 98.7 F Temperature Source Oral Pulse Rate 82 79 Pulse Rate [Right] 85 Respiratory Rate 16 16 14 Blood Pressure 192/93 H 141/77 H Blood Pressure [Right Arm] 165/80 H Blood Pressure Mean [Right Arm] 108 Blood Pressure Source Blood Pressure Source [Right Arm] Automatic Cuff Blood Pressure Position Blood Pressure Position [Right Arm] Sitting 02 Sat by Pulse Oximetry 100 95 99 Oxygen Delivery Method Room Air 02/12/25 15:00 02/12/25 15:30 02/12/25 16:15 Temperature Temperature Source Pulse Rate 75 70 66 Pulse Rate [Right] Respiratory Rate 13 12 12 Blood Pressure 139/71 128/62 153/71 H Blood Pressure [Right Arm] Blood Pressure Mean [Right Arm] Blood Pressure Source Blood Pressure Source [Right Arm] Blood Pressure Position Blood Pressure Position [Right Arm] 02 Sat by Pulse Oximetry 97 97 97 Oxygen Delivery Method Room Air Room Air 02/12/25 16:30 02/12/25 17:00 02/12/25 17:59 Temperature 98.5 F Temperature Source Oral Pulse Rate 67 68 69 Pulse Rate [Right] Respiratory Rate 13 13 16 Blood Pressure 157/83 H 154/73 H 154/87 H Blood Pressure [Right Arm] Blood Pressure Mean [Right Arm] Blood Pressure Source Automatic Cuff Blood Pressure Source [Right Arm] Blood Pressure Position Supine Blood Pressure Position [Right Arm] 02 Sat by Pulse Oximetry 100 97 Oxygen Delivery Method Room Air Room Air Room Air Lab Data Labs: Lab Results 02/12/25 14:25: WBC 6.6, RBC 4.49, Hgb 13.8, Hct 38.9, MCV 86.6, MCH 30.7, MCHC 35.5 H, RDW 12.1, Plt Count 277, MPV 9.4, Neut % (Auto) 69.7, Lymph % (Auto) 21.9, [place] % (Auto) 7.1, Eos % (Auto) 0.5, Baso % (Auto) 0.5, Neut # (Auto) 4.6, Lymph # (Auto) 1.4, [place] # (Auto) 0.5, Eos # (Auto) 0.0, Baso # (Auto) 0.0, Sodium 127 L, Potassium 3.5, Chloride 92 L, Carbon Dioxide 28, Anion Gap 10.5, BUN 8, Creatinine 0.50 L, Estimated Creat Clear 70, Estimated GFR 120, Est GFR ( Amer) 145, Glucose 123 H, Calcium 8.6, Total Bilirubin 0.5, AST 39 H, ALT 22, Alkaline Phosphatase 99, Troponin I < 0.01, Total Protein 6.6, Albumin 4.0, Globulin 2.6, Albumin/Globulin Ratio 1.5 02/12/25 17:04: Troponin I < 0.01 02/12/25 14:25 02/12/25 14:25 Response Orders (Tests/Meds): ED MEDICATIONS Discontinued Medications Generic Name Dose Route Start Last Admin Trade Name Freq PRN Reason Stop Dose Admin Aspirin 324 mg 02/12/25 14:44 02/12/25 14:51 Aspirin 81mg Chewable Tablet PO 02/12/25 14:45 324 mg ONCE ONE Administration Iopamidol 160 ml 02/12/25 15:43 02/12/25 15:54 Iopamidol-370 (76%);100ml Bottle IV 02/12/25 15:44 160 ml ONCE ONE Administration Sodium Chloride 10 ml 02/12/25 15:43 02/12/25 15:54 Sodium Chloride 0.9% 10ml Syr (Rad Only) IV 03/14/25 15:42 10 ml NEEDED PRN Administration Maintain IV Site Sodium Chloride 100 ml 02/12/25 15:43 02/12/25 15:53 0.9 % Sodium Chloride 50 Ml Vial IV 02/12/25 15:44 100 ml ONCE ONE Administration ORDERS Category Date Time Status CT angio chest - dissection Stat Cat Scan 02/12/25 14:[address] angio head Stat Cat Scan 02/12/25 14:[address] angio neck Stat Cat Scan 02/12/25 14:[address] head/brain wo con Stat Cat Scan 02/12/25 14:43 Completed CBC w/Auto Diff [Complete Blood Count Auto Diff] Stat Lab 02/12/25 14:25 Completed CMP [Comprehensive Metabolic Panel] Stat Lab 02/12/25 14:25 Completed Trop I [Troponin I] Stat Lab 02/12/25 14:25 Completed Troponin I Q3H Lab 02/12/25 17:04 Completed ECG Data Tracing #1: ECG Narrative: Independently interpreted by me rate is 83, rhythm is largely regular, sinus rhythm with intermittent sinus arrhythmia, no ST elevation in anatomical contiguous leads, QTc 416. MDM Narrative Medical Decision Narrative: In summary patient is 79-year-old female past medical history of scrota above presents emergency department for evaluation of left superior chest pain, left neck pain, holocranial headache. Patient is hemodynamically stable and hypertensive upon arrival, afebrile. Patient may be having hypertensive emergency and multiple automated blood pressures at bedside were concerning in the low 200s. However upon patient laying in bed for a short amount of time manual blood pressure is much more acceptable with systolics in the 140s. Differential includes ACS, noncardiac chest pain, aortic dissection, cervical artery dissection, spontaneous subarachnoid hemorrhage, among others. Workup in totality will be conducted with hematologic labs, noncontrasted CT scan of the head CTA of the head neck chest. Initial hematologic labs reviewed by me and are largely nonactionable patient does have a downtrending chronic hyponatremia with and hypochloremia which will need to be addressed at some point but as of now there is no emergent cause for needing to address this given that she is not symptomatic from her hyponatremia and it is moderate it is likely secondary to her hydrochlorothiazide containing antihypertensive which can be modified on an outpatient basis. Initial troponin undetectably low. CTs were ordered and pending at time of transfer care to the oncoming physician, Dr. Tavarez. <Savita Tavarez, DO - Last Filed: 02/12/25 18:36> Vital Signs Vital Signs: 02/12/25 14:07 02/12/25 14:18 02/12/25 14:43 Temperature 98.7 F Temperature Source Oral Pulse Rate 82 79 Pulse Rate [Right] 85 Respiratory Rate 16 16 14 Blood Pressure 192/93 H 141/77 H Blood Pressure [Right Arm] 165/80 H Blood Pressure Mean [Right Arm] 108 Blood Pressure Source Blood Pressure Source [Right Arm] Automatic Cuff Blood Pressure Position Blood Pressure Position [Right Arm] Sitting 02 Sat by Pulse Oximetry 100 95 99 Oxygen Delivery Method Room Air 02/12/25 15:00 02/12/25 15:30 02/12/25 16:15 Temperature Temperature Source Pulse Rate 75 70 66 Pulse Rate [Right] Respiratory Rate 13 12 12 Blood Pressure 139/71 128/62 153/71 H Blood Pressure [Right Arm] Blood Pressure Mean [Right Arm] Blood Pressure Source Blood Pressure Source [Right Arm] Blood Pressure Position Blood Pressure Position [Right Arm] 02 Sat by Pulse Oximetry 97 97 97 Oxygen Delivery Method Room Air Room Air 02/12/25 16:30 02/12/25 17:00 02/12/25 17:59 Temperature 98.5 F Temperature Source Oral Pulse Rate 67 68 69 Pulse Rate [Right] Respiratory Rate 13 13 16 Blood Pressure 157/83 H 154/73 H 154/87 H Blood Pressure [Right Arm] Blood Pressure Mean [Right Arm] Blood Pressure Source Automatic Cuff Blood Pressure Source [Right Arm] Blood Pressure Position Supine Blood Pressure Position [Right Arm] 02 Sat by Pulse Oximetry 100 97 Oxygen Delivery Method Room Air Room Air Room Air Lab Data Labs: Lab Results 02/12/25 14:25: WBC 6.6, RBC 4.49, Hgb 13.8, Hct 38.9, MCV 86.6, MCH 30.7, MCHC 35.5 H, RDW 12.1, Plt Count 277, MPV 9.4, Neut % (Auto) 69.7, Lymph % (Auto) 21.9, [place] % (Auto) 7.1, Eos % (Auto) 0.5, Baso % (Auto) 0.5, Neut # (Auto) 4.6, Lymph # (Auto) 1.4, [place] # (Auto) 0.5, Eos # (Auto) 0.0, Baso # (Auto) 0.0, Sodium 127 L, Potassium 3.5, Chloride 92 L, Carbon Dioxide 28, Anion Gap 10.5, BUN 8, Creatinine 0.50 L, Estimated Creat Clear 70, Estimated GFR 120, Est GFR ( Amer) 145, Glucose 123 H, Calcium 8.6, Total Bilirubin 0.5, AST 39 H, ALT 22, Alkaline Phosphatase 99, Troponin I < 0.01, Total Protein 6.6, Albumin 4.0, Globulin 2.6, Albumin/Globulin Ratio 1.5 02/12/25 17:04: Troponin I < 0.01 Response Orders (Tests/Meds): ED MEDICATIONS Discontinued Medications Generic Name Dose Route Start Last Admin Trade Name Freq PRN Reason Stop Dose Admin Aspirin 324 mg 02/12/25 14:44 02/12/25 14:51 Aspirin 81mg Chewable Tablet PO 02/12/25 14:45 324 mg ONCE ONE Administration Iopamidol 160 ml 02/12/25 15:43 02/12/25 15:54 Iopamidol-370 (76%);100ml Bottle IV 02/12/25 15:44 160 ml ONCE ONE Administration Sodium Chloride 10 ml 02/12/25 15:43 02/12/25 15:54 Sodium Chloride 0.9% 10ml Syr (Rad Only) IV 03/14/25 15:42 10 ml NEEDED PRN Administration Maintain IV Site Sodium Chloride 100 ml 02/12/25 15:43 02/12/25 15:53 0.9 % Sodium Chloride 50 Ml Vial IV 02/12/25 15:44 100 ml ONCE ONE Administration ORDERS Category Date Time Status CT angio chest - dissection Stat Cat Scan 02/12/25 14:[address] angio head Stat Cat Scan 02/12/25 14:[address] angio neck Stat Cat Scan 02/12/25 14:[address] head/brain wo con Stat Cat Scan 02/12/25 14:43 Completed CBC w/Auto Diff [Complete Blood Count Auto Diff] Stat Lab 02/12/25 14:25 Completed CMP [Comprehensive Metabolic Panel] Stat Lab 02/12/25 14:25 Completed Trop I [Troponin I] Stat Lab 02/12/25 14:25 Completed Troponin I Q3H Lab 02/12/25 17:04 Completed MDM Narrative Medical Decision Narrative: In summary patient is 79-year-old female past medical history of scrota above presents emergency department for evaluation of left superior chest pain, left neck pain, holocranial headache. Patient is hemodynamically stable and hypertensive upon arrival, afebrile. Patient may be having hypertensive emergency and multiple automated blood pressures at bedside were concerning in the low 200s. However upon patient laying in bed for a short amount of time manual blood pressure is much more acceptable with systolics in the 140s. Differential includes ACS, noncardiac chest pain, aortic dissection, cervical artery dissection, spontaneous subarachnoid hemorrhage, among others. Workup in totality will be conducted with hematologic labs, noncontrasted CT scan of the head CTA of the head neck chest. Initial hematologic labs reviewed by me and are largely nonactionable patient does have a downtrending chronic hyponatremia with and hypochloremia which will need to be addressed at some point but as of now there is no emergent cause for needing to address this given that she is not symptomatic from her hyponatremia and it is moderate it is likely secondary to her hydrochlorothiazide containing antihypertensive which can be modified on an outpatient basis. Initial troponin undetectably low. CTs were ordered and pending at time of transfer care to the oncoming physician, Dr. Tavarez. Savita Tavarez, DO I assumed care of the patient at 1500. Patient's labs were reviewed and interpreted by myself: CBC showed no leukocytosis, hemoglobin was stable. CMP was unremarkable. Initial troponin was less than 0.01, second troponin was less than 0.01. CT head, CTA head and neck as well as CT chest were reviewed and interpreted by myself and final radiology reads showed no acute findings. On my repeat evaluation, patient chest pain had resolved therefore at this time I felt that patient was appropriate and stable for discharge. Return precautions were discussed. Patient did have some blood pressures that were higher than her usual, I recommended that patient take her blood pressure daily and keep a journal at home. Patient has follow-up with her primary care provider next . Heart score of 3 therefore appropriate for outpatient management.
[2025-02-12] MEDS: 0.9 % SODIUM CHLORIDE 50 ML VIAL 100 ML IV (15:53)
[2025-02-12] MEDS: IOPAMIDOL-370 (76%);100ML BOTTLE 160 ML IV (15:54)
[2025-02-12] MEDS: SODIUM CHLORIDE 0.9% 10ML SYR (RAD ONLY) 10 ML IV (15:54)
--- NOTE | 2025-02-12 17:27 | PC.NURSE ---
pt ambulatory to restroom without complications; spouse at BS
[2025-02-12 17:40] LABS: Troponin I < 0.01 ng/ml (0.00-0.034)
--- NOTE | 2025-02-12 17:50 | PC.NURSE ---
Dr. Tavarez at BS to re-eval patient; spouse at BS
== END 2025-02-12 18:05 | disposition home or self-care (01) ==
PROVIDERS: Emergency Medicine; Emergency Provider Student in an Organized Health Care Education/Training Program; PCP Family Medicine
DX: R07.89 Other chest pain (principal); K21.9 Gastro-esophageal reflux disease without esophagitis; I11.0 Hypertensive heart disease with heart failure
CPT/HCPCS: 70450; 70496; 70498; 71275; 80053; 84484; 85025; 93005; 99285; Q9967

== ENCOUNTER 2025-02-25 11:50 | Outpatient (CLI) | payer MEDICARE, SELFPAY ==
--- OUTSIDE RECORDS SUMMARY | 2025-02-18 11:30 | XMS_ITS | Encounter Summary ---
[facility] [address] [place] [id number] Care Team Providers Care Director Of Materials Management Name Role Phone Anthony Seth MD Primary Care Provider [phone] Reason for Referral * Diagnostic Imaging (Routine) - Pending Review Specialty Diagnoses / Procedures Referred By Contac t Referred To Contact Diagnoses LEE (dyspnea on exertion) Procedures Adult Transthoracic Echo Complete W/ Cont if Necessary Per Protocol Yunier Red MD [address] [place] [address] Phone: tel: fax: [facility] [address] [place] [address] Phone: tel: Referral ID Status Reason Start Date Expiration Date V isits Requested Visits Authorized [id number] Pending Review 02/18/2025 05/20/2026 1 1 Reason for Visit * Reason Comments Atrial Fibrillation Encounter Details Date Type Department Care Team (Late st Contact Info) Description 02/18/2025 11:30 AM EDT Office Visit [facility] CARDIOLOGY [address] [place] [id number] Yunier Red MD [address] [place] [address] Paroxysmal atrial fibrillation (Primary Dx); Essential hypertension; Dyslipidemia; LEE (dyspnea on exertion) Social History Tobacco Use Types Packs/Day Years Used Date Smoking Tobacco: Never Passive Smoke Exposure: Never Smokeless Tobacco: Never Alcohol Use Standard Drinks/Week Comments No 0 (1 standard drink = 0.6 oz pur e alcohol) Comments No Sex and Gender Information Value Date Recorded Sex Assigned at Female 02/18/2025 10:54 AM EDT Legal Sex Female 12:59 PM EDT Gender Identity Not on file Sexual Orientation Not on file documented as of this encounter Last Filed Vital Signs Vital Sign Reading Time Taken Comments Blood Pressure 114/66 02/18/2025 11:26 AM EDT Pulse 78 02/18/2025 11:26 AM EDT Temperature - - Respiratory Rate - - Oxygen Saturation 97% 02/18/2025 11:26 AM EDT Inhaled Oxygen Concentration - - Weight 94.3 kg (208 lb) 02/18/2025 11:26 AM EDT Height 175.3 cm (5' 9 ) 02/18/2025 11:26 AM EDT Body Mass Index 30.72 02/18/2025 11:26 AM EDT documented in this encounter Progress Notes * Yunier Red MD - 02/18/2025 11:30 AM EDT [facility] Cardiology Consultation H&P Niki Vaughandeb Amos 1945 [address] [place] [address] VISIT DATE: 02/18/25 PCP: Anthony Seth MD [address] [facility] [address] [place] [address] IDENTIFICATION: A 79 y.o. female resident of [place], [place], Of Anthony Amos [facility] pt Former [facility] pt PROBLEM LIST: HTN HLD 11/17 161/68/73/75 06/21 CCS 20 VHD hx MVP 05/2005 LAURA +1 MR, data deficient 06/21 echo [facility] EF >60% AV sclerosis A. fib Hx 4 ablations, last in 2005 w no recurrences(Dr Weeks) GERD Covid positive in May 2021 - no hospitalization/ no infusion Surgical history Cardiac ablation for A. fib ??4, last in 2005 ??2 Esophageal ballooning CC: Chief Complaint Patient presents with Atrial Fibrillation Allergies No Known Allergies Current Medications Current Outpatient Medications: ALLERGY SERUM INJECTION, Inject under the skin into the appropriate area as directed Every 30 (Thirty) Days., Disp: , Rfl: azelastine (ASTELIN) 0.1 % nasal spray, USE 1 TO 2 SPRAYS IN EACH NOSTRIL TWICE DAILY NEEDED, Disp: , Rfl: EPINEPHrine (EPIPEN) 0.3 MG/0.3ML solution auto-injector injection, As Needed., Disp: , Rfl: fluticasone (FLONASE) 50 MCG/ACT nasal spray, 2 sprays into the nostril(s) as directed by provider Daily., Disp: , Rfl: hydroxychloroquine (PLAQUENIL) 200 MG tablet, Take 1 tablet by mouth 2 (Two) Times a Day., Disp: , Rfl: lisinopril-hydrochlorothiazide (PRINZIDE,ZESTORETIC) 20-12.5 MG per tablet, Take 1 tablet by mouth Daily., Disp: , Rfl: loratadine (CLARITIN) 10 MG tablet, Take 1 tablet by mouth Daily., Disp: , Rfl: montelukast (SINGULAIR) 10 MG tablet, Take 1 tablet by mouth Every Night., Disp: , Rfl: omeprazole (priLOSEC) 20 MG capsule, Take 1 capsule by mouth Daily., Disp: , Rfl: simvastatin (ZOCOR) 20 MG tablet, Take 1 tablet by mouth Every Night., Disp: , Rfl: History of Present Illness HPI Niki Amos is a 79 y.o. year old female with the above mentioned PMH who presents for follow-up. Was at [facility] secondary to lightheadedness most recently was treated and released with neurologic evaluation. She been following her blood pressure and if it is anything low normal most recently. She states she has had some increased shortness of breath She continues to do water aerobics but no resistance activity Vitals: 02/18/25 1126 BP: 114/66 BP Location: Right arm Patient Position: Sitting Cuff Size: Adult Pulse: 78 SpO2: 97% Weight: 94.3 kg (208 lb) Height: 175.3 cm (69 ) Body mass index is 30.72 kg/m??. PHYSICAL EXAMINATION: Vitals and nursing note reviewed. Constitutional: General: Awake. Not in acute distress. Appearance: Healthy appearance. Well-developed and not in distress. Obese. Eyes: Conjunctiva/sclera: Conjunctivae normal. Pupils: Pupils are equal, round, and reactive to light. HENT: Head: Normocephalic and atraumatic. Nose: Nose normal. Mouth/Throat: Pharynx: Uvula midline. Neck: Vascular: No carotid bruit. Trachea: No tracheal deviation. Pulmonary: Effort: Pulmonary effort is normal. Breath sounds: Normal breath sounds. No wheezing. No rhonchi. No rales. Cardiovascular: Normal rate. Regular rhythm. Normal S1. Normal S2. Murmurs: There is no murmur. No gallop. No click. No rub. Pulses: Intact distal pulses. Edema: Peripheral edema absent. Abdominal: General: Bowel sounds are normal. Palpations: Abdomen is soft. Musculoskeletal: Cervical back: Normal range of motion and neck supple. Skin: General: Skin is warm and dry. Findings: No erythema. Neurological: Mental Status: Alert, oriented to person, place, and time and oriented to person, place and time. Psychiatric: Attention and Perception: Attention normal. Mood and Affect: Mood normal. Speech: Speech normal. Behavior: Behavior normal. Behavior is cooperative. Diagnostic Data: Procedures ASSESSMENT: Diagnosis Plan 1. Paroxysmal atrial fibrillation 2. Essential hypertension 3. Dyslipidemia 4. LEE (dyspnea on exertion) PLAN: 1. Paroxysmal atrial fibrillation-patient denies any breakthrough episodes of atrial fibrillation since her last ablation (what appears to be in 2005). Patient historically not on anticoagulation dueto stability of rhythm. 2. Hypertension - patients' in-clinic blood pressure appreciated at 110/54. Continue current medical regimen. 3. Hyperlipidemia-patient's most recent lipid panel at goal of LDL <70. Continue current medicalregimen with low risk cardiac calcium score 4. LEE will redocument echocardiogram No ref. provider found, thank you for referring Ms. Amos for evaluation. I have forwarded my electronically generated recommendations to you for review. Please do not hesitate to call with any questions. Yunier Red MD, [facility] documented in this encounter Plan of Treatment Upcoming Encounters Date Type Department Care Team (Late st Contact Info) Description 07/21/2026 12:00 PM EDT Office Visit [facility] CARDIOLOGY [address] [place] [place] [address] Yunier Red MD [address] [facility] [address] [place] [address] Scheduled Orders Name Type Priority Associated Diagnoses Order Schedule Adult Transthoracic Echo Complete W/ Cont if Necessary Per Protocol Echocardiography Routine LEE (dyspnea on exertion) Expected: 02/23/2025, Expires: 02/18/2026 documented as of this encounter Visit Diagnoses Diagnosis Paroxysmal atrial fibrillation- Primary Atrial fibrillation Essential hypertension Unspecified essential hypertension Dyslipidemia Other and unspecified hyperlipidemia LEE (dyspnea on exertion) Other dyspnea and respiratory abnormality documented in this encounter Care Teams Director Of Materials Management Relationship Specialty Start Date End Date Anthony Seth MD [address] [facility] [address] [facility] [place] [address] PCP - General Family Medicine 10/02/21 documented as of this encounter
--- NOTE | 2025-02-25 | CA_ITS ---
APPROVED REPORT EXAM: Comprehensive 2D, Doppler, and color-flow Echocardiogram Director Motion Picture: Katelynn Casanova, RCS, RVS Ht: 5 ft 9 in Wt: 208lbs BSA: 2.10 BP: 138/64 mmHg Indications: LEE, Atypical Angina, History of 4 ablations for Atrial fibrillation 2D Dimensions Left Atrium 2.95 cm F: 2.7 - 3.8 LA Volume 45.60 mL LA Volume Index 21.853541 mL/m2 (M/F) 16-34 EF AP4 65.70 % GL Strain -28.4 % M-Mode Dimensions RVDd 2.38 cm (0.9-2.6) LA Diam 3.63 cm (1.9-4.0) LVDd 4.25 cm (3.5-5.7) LVDs 2.96 cm (3.5-5.7) IVSd 1.10 cm (0.6-1.1) PWd 1.00 cm (0.6-1.1) EF (Teich) 67.40% EPSs 0.48 cm FS 37.40% EDV (Teich) 103.90 mL TAPSE 1.66 (<1.7) ESV (Teich) 33.90 mL LV Diastology E Decel Time 203 (160-240 msec) E/A Ratio 0.74 MED A' 8.30 cm/s LAT A' 12.70 cm/s Aortic Valve KINGS Index 0.98 cm2/m2 AoV Peak Clifton. 132.0 (50-130 cm/s) AO Peak GR. 7.00 mmHg AO Mean GR. 3.50 (<5 mmHg) AO VTI 24.3 (18-25 cm) KINGS (VTI) 2.11 (2.5-4.5 cm2) Mitral Valve MV A Velocity 66.0 (40-130 cm/s) E/A Ratio 0.74 Pulmonary Valve PV Peak Velocity 80.0 (50-150 cm/s) Left Ventricle The left ventricle is normal size. Left ventricular systolic function is normal. The left ventricular ejection fraction is within the normal range. There is increased left ventricular wall thickness. There is normal LV segmental wall motion. The left ventricular diastolic function is normal. LVEF is 55% Right Ventricle The right ventricle is normal size. The right ventricular systolic function is normal. Atria The left atrium size is normal. The right atrium size is normal. There is no color Doppler evidence of interatrial shunt. Aortic Valve The aortic valve opens well. There is no hemodynamically significant aortic valvular stenosis. No aortic regurgitation is present. Mitral Valve The mitral valve is mildly thickened. There is a small-sized, subcentimetric hyperechoic mobile echodensity along the anterior MV leaflet. This is indeterminate on TTE, and likely represents calcificaton vs. redundant cord vs. fibroelastoma, but vegetation or thrombus cannot be entirely ruled out. No evidence of mitral valve stenosis. Trace mitral regurgitation is present. Tricuspid Valve The tricuspid valve leaflets are thin and pliable. Trace tricuspid regurgitation. There is insufficient TR jet to estimate RVSP. Pulmonic Valve The pulmonary valve is grossly normal in structure. Trace pulmonic valve regurgitation is present. Great Vessels The aortic root is normal in size. IVC is normal in size and collapses >50% with inspiration. Pericardium There is no pericardial effusion. Other Information Study Quality: Fair Conclusion Normal biventricular systolic function. No significant valvular stenosis or regurgitation. Small-sized, subcentimetric hyperechoic mobile echodensity along the anterior MV leaflet. This is indeterminate on TTE, and likely represents calcificaton vs. redundant cord vs. fibroelastoma, but vegetation or thrombus cannot be entirely ruled out. Of note, upon direct comparison with prior TTE from 06/18/2022, this echodensity is not new and was also present on the previous TTE (same size and location), albeit the imaging at the time was more technically difficult for visualization. Electronically signed by : Deysi Mcintosh MD 02/28/2025 16:15:10
--- NOTE | 2025-02-25 11:55 | XR_ITS ---
FINAL REPORT CLINICAL HISTORY: left shoulder pain FINDINGS: LEFT SHOULDER 3 views of the left shoulder were obtained. There is no acute fracture or dislocation. There are mild hypertrophic changes at the acromioclavicular joint. There is degenerative cyst formation in the greater tuberosity. Soft tissues are unremarkable. IMPRESSION: Degenerative changes with no acute bony abnormality. Reviewed, Interpreted and Dictated by Lamont Roe MD Transcribed by Carey Marx Authenticated and [facility]
--- NOTE | 2025-02-25 11:55 | XR_ITS ---
FINAL REPORT CLINICAL HISTORY: PAIN states pain right/left side of neck, tightness FINDINGS: SOFT TISSUE NECK A single, AP view of the neck was obtained. No abnormality is identified. IMPRESSION: No abnormality identified. Reviewed, Interpreted and Dictated by Lamont Roe MD Transcribed by Carey Marx Authenticated and [facility]
--- OUTSIDE RECORDS SUMMARY | 2025-02-25 11:56 | XMS_ITS | Encounter Summary ---
[facility] Address [address] [place] [address] Care Team Providers Care Waffle Machine Operator Name Role Phone Anthony Seth MD Primary Care Provider [phone] Encounter Details Date Type Department Care Team (Latest Contact Info) Description 02/18/2025 Travel Social History Tobacco Use Types Packs/Day Years [...] on file documented as of this encounter Plan of Treatment Upcoming Encounters Date Type Department Care Team (Late st Contact Info) Description 07/21/2026 12:00 PM EDT Office Visit [facility] CARDIOLOGY [address] [place] [address] [place] [address] Yunier Red MD [address] [facility] [address] [place] [address] documented as of this encounter Visit Diagnoses Not on filedocumented in this encounter Care Teams Waffle Machine Operator Relationship Specialty Start Date End Date Anthony Seth MD [address] [place] [facility] [address] [place] [address] PCP - General Family Medicine 10/02/21 documented as of this encounter
--- OUTSIDE RECORDS SUMMARY | 2025-02-25 11:56 | XMS_ITS | Data Portability ---
Author Organization [facility] Address [address] [place] [address] Assessment Encounter Date Assessment Date Assessment LastModified by Organization Details LastModified Time 09/01/2020 09/01/2020 She will go to OT today to be transitioned to a hand-based thumb spica splint with the IP joint free to wear at all times except for showering for an additional 4 weeks. Counselling on continued precautions discussed at length. 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 RTO as scheduled or sooner if needed, advised to call office with any questions/concer ns. [email or web address] Not available 09/04/2020 21:41:03 09/29/2020 09/29/2020 Referral to therapy to begin working on range of motion. No heavy pinching or gripping involving the thumb. Follow-up again in 6 weeks for repeat assessment. [email or web address] Not available 09/29/2020 16:47:17 11/10/2020 11/10/2020 Patient can now gradually resume activities with the right hand at this time. Continue therapy working on strengthening with transition to a home exercise program and appropriate. Plan to continue to monitor the left thumb and treat as needed should symptoms worsen over time. Follow-up again in 6 weeks for final postoperative assessment. [email or web address] Not available 11/11/2020 18:10:42 Plan of Treatment Reminders Order Date Submit Date Provider Last Modified By Organization Details Last Modified Time Details Appointments None recorded. Lab None recorded. Referral occupationa l therapist referral - hand-based thumb spica splint with the IP joint free to wear at all times except for showering for an additional 4 weeks. 2020 DBA_BACKF IL_ 07 Not available 03:32:50 Procedures None recorded. Surgeries None recorded. Imaging None recorded. Medication Orders None recorded. Patient TargetsNo targets recorded. Patient InstructionsNo instructions recorded. Reason for Referral Occupational Therapist Refer [facility] for Postoperative care hand-based thumb spica splint with the IP joint free to wear at all times except for showering for an additional 4 weeks. Referring Physician: Zach Jacobo, Orthopaedic Surgery - Hand, Encounter Date: 09/01/2020 Results Created Date Observation Date Name Description Value Unit Range Abnormal Flag Note LastModifiedBy Organization Detail LastModifiedTime 09/02/19 21 09/01/2020 XR, wrist , 3 or more view [facility] [address] [place] [address] Patijenifer t Name: NIIK infante : 948 Patijenifer t 9 Orderi ng Provid er: KARON JACOBO EXAM DATE: 2020 EXAM: XR RT WRIST COMPLE TE HISTOR Y: Follow up of prior surger y. COMPAR SUSANA: Intrao perati ve images dated 021 FINDIN GS: The patien t is status post right first carpom etacar pal arthro plasty . There is no eviden ce of compli cation . There are mild residu al degene rative change s. No fractu re is identi fied. IMPRES SARA: 1. The patien t is status post right first carpom etacar pal arthro plasty withou t eviden ce of compli cation . Interp reted By: John ryan MD Electr onical ly Signed By: John ryan MD on 09/02/19 10:37 AM [email or web address]_ [facility] [place] [address] , [place], [address], 11/02/2021 03:33:15 Result Notes Documentation Provider Name and Address Organization Details Recorded Time Xr, Wrist, 3 Or More View : [facility] [address] [address] Patient Name: NIKI LEWIS Patient : [id number] Patient Ordering Provider: ZACH JACOBO EXAM DATE: 09/01/2020 EXAM: XR RT WRIST COMPLETE HISTORY: Followup of prior surgery. COMPARISON: Intraoperative images dated 08/22/2020 FINDINGS: The patient is status post right first carpometacarpal arthroplasty. There is no evidence of complication. There are mild residual degenerative changes. No fracture is identified. IMPRESSION: 1. The patient is status post right first carpometacarpal arthroplasty without evidence of complication. 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 Procedures Surgical History Date Name Laterality Status Provider Name and Address Organization Details Recorded Time 1 Orthotic, HFO, Static Custom completed ALEK PARRISH JR, OTR/L, CHT [address] [place], [address], [facility] 09/01/2020 11:22:26 1 Arthoplasty, thumb CMC with trapezoid excision - [place] completed RK ALEXIS MD [address] [place], [address], [facility] 08/22/2020 14:54:59 Imaging Results None recorded. Procedure Notes None recorded. Medical Equipment None Reported. Allergies No known drug allergies Medications Name Sig Start Date Stop Date Status Note LastModified by Organization Details LastModified Time lisinopri l 20 mg tablet Bedtime active Duration : 30 days;Jos quency: hs;Medic ation Descript ion: lisinopr il; Dosage:1 ; Route:or al; refills: 5; Quantity :30 tablet Not Available Not Available Not Available meloxicam 7.5 mg tablet TAKE 1 TAB PO QD WITH FOOD REGARDLE SS OF PAIL LEVEL FOR 1 WEEK, THEN TAKE ONLY PRN FOR PAIN RELIEF THEREAFT ER 09/29 completed Not Available Not Available Not Available hydrocodo ne 7.5 mg-acetam inophen 325 mg tablet Take 1 tablet every 6 hours by oral route. 09/29 completed Not Available Not Available Not Available Neurontin 100 mg capsule TAKE 1 CAPSULE PO QHS FOR 1 WEEK 09/01 completed Not Available Not Available Not Available monteluka st 10 mg tablet Take 1 tablet every day by oral route. active Not Available Not Available No t Available hydroxych loroquine 200 mg tablet Take 1 tablet every day by oral route. active Not Available Not Available No t Available fluticaso ne propionat e 50 mcg/actua tion nasal spray,diane pension active Medicati on Descript ion: fluticas one nasal; Route:na jonathan; refills: 0 Not Available Not Available Not Available loratadin e 10 mg tablet Daily active Frequenc y: daily;Me dication Descript ion: loratadi ne; Dosage:1 ; Route:or al; refills: 5; Quantity :30 tablet Not Available Not Available Not Available simvastat in active Medicati on Descript ion: simvasta tin; Route:or al; refills: 0 Not Available Not Available Not Available omeprazol e (bulk) active Not Available Not Available Not Available Vitals Date Recorded Body height Body mass index (BMI) Body weight Pain severity - 0-10 verbal numeric rating [Score] - Reported Provider Name and Address Organization Details Last Updated DateTime 09/01/2020 175.26 cm 31 kg/m2 84081.4 g 0 Zonia Bojorquez [facility] 09/01/2020 10:03:30 Date Recorded Body height Body mass index (BMI) Body weight Provider Name and Address Organization Details Last Updated DateTime 09/29/2020 175.26 cm 31 kg/m2 67140.4 g [facility] 09/29/2020 11:30:41 Date Recorded Body height Body mass index (BMI) Body weight Provider Name and Address Organization Details Last Updated DateTime 11/10/2020 175.26 cm 31 kg/m2 17688.4 g [facility] 11/10/2020 10:37:59 Social History None recorded. Functional Status None recorded. Mental Status None recorded. Family History Relationship Description Onset Age of this Age Resolved Age Notes LastModified by Organization Details LastModified Time Father No current problems or disability [email or web address] Not available 09/01 10:04:22 Mother No current problems or disability [email or web address] Not available 09/01 10:04:22 Medical History Condition Response Included as Review of Systems Y Gynecological HistoryNo gynecological history recorded. 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 [id number] RK ALEXIS MD SURGERY SCHEDULE [address] [place] [address] 08/22/2020 07:04:19 08/22/2020 07:04:38 [id number] ZACH JACOBO PA-C [facility] [address] [place] [address] 09/01/2020 09:55:36 09/01/2020 10:47:17 Postoperative care [id number] Z48.89 s/p Right thumb CMC interposit ional arthroplas ty with APL tendon transfer suspension ; Right half trapezoid excision; Right flexor carpi radialis tenosynove ctomy; Left thumb CMC joint corticoste roid injection (DOS: 08/22/20) Post op films today reveal patient is status post right thumb CMC arthroplas ty with half trapezoid excision without evidence of complicati on. 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 [id number] ALEK PARRISH JR, OTR/L, CHT PHYSICAL THERAPY / HAND THERAPY [facility] [address] [place] [address] 09/01/2020 10:46:37 09/01/2020 13:42:21 Osteoarthrosis of the carpometacarpal joint of the thumb 45184580 M18.9 right [id number] RK ALEXIS MD [facility] [address] [place] [address] 09/29/2020 10:16:37 09/29/2020 12:02:36 Postoperative care 563400751 Z48.89 6 weeks s/p Right thumb CMC interposit ional arthroplas ty with APL tendon transfer suspension ; Right half trapezoid excision; Right flexor carpi radialis tenosynove ctomy; Left thumb CMC joint corticoste roid injection (DOS: 08/22/20) Osteoarthr osis of the carpometacarpal joint of the thumb 98451631 M18.12 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 Previously s/p Right thumb CMC interposit ional arthroplas ty with APL tendon transfer suspension ; Right half trapezoid excision; Right flexor carpi radialis tenosynove ctomy (DOS: 08/22/20) [id number] RK ALEXIS MD [facility] [address] [place] [address] 11/10/2020 09:47:41 11/10/2020 11:45:31 Postoperative care 189706748 Z48.89 12 weeks s/p Right thumb CMC interposit ional arthroplas ty with APL tendon transfer suspension ; Right half trapezoid excision; Right flexor carpi radialis tenosynove ctomy; Left thumb CMC joint corticoste roid injection (DOS: 08/22/20) Osteoarthr osis of the carpometacarpal joint of the thumb 82283260 M18.12 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 Previously s/p Right thumb CMC interposit ional arthroplas ty with APL tendon transfer suspension ; Right half trapezoid excision; Right flexor carpi radialis tenosynove ctomy (DOS: 08/22/20) Health Concerns Section Related Observation LastModified by Organization Detai ls LastModified Time None Recorded Concern Status LastModified by Organization Details LastModified Time None Recorded Advance Directives Directive None Recorded Payers Insurance Date Sequence Insurance Name Policy Number Policy Davila Covered Member ID Davila Member ID Guarantor Name 08/30/2023 1 [facility] (MEDICARE REPLACEMENT/A DVANTAGE - PPO) [id number] Niki A Bette [id number] Niki A Bette 08/12/2020 1 [facility] [id number] Niki A Bette [id number] Niki A Bette Notes Date Note Type Note Provider Name and Address Organization Details Recorded Time 09/01/2020 text/html Patient presents today for post op follow up visit. She reports uneventful post op period. Primary Care Physician: Demetrius Seth Hand dominance: Right Location: Right Thumb Pain level: 0 /10 0 Recent Surgery: Yes Procedure: Right thumb CMC interpositional arthroplasty with APL tendon transfer suspension - Right half trapezoid excision - Right flexor carpi radialis tenosynovectomy - Left thumb CMC joint corticosteroid injection Date of surgery: 08-22-2020 Currently employed?: Retired ZACH JACOBO PA-C [address] [place], [address], [facility] 09/04/2020 21:41:17 09/01/2020 text/html 08-22-2020 RIGHT THUMB CMC INTERPOSITIONAL ARTHROPLASTY WITH APL SUSPENSION AND 1/2 TRAPEZOID EXCISION ALEK PARRISH JR, OTR/L, CHT [address] [place], [address], [facility] 09/01/2020 11:22:51 09/29/2020 text/html Patient reports that she is doing well overall with minimal soreness. She has started to wean herself out of the splint on her own. She does report some mild numbness and tingling along the superficial radial sensory nerve distribution along the dorsal hand, which is gradually improving. Primary Care Physician: Demetrius Seth Hand dominance: Right Location: Right Thumb Pain level: 0 /10 Recent Surgery: Yes Procedure: Right thumb CMC interpositional arthroplasty with APL tendon transfer suspension - Right half trapezoid excision - Right flexor carpi radialis tenosynovectomy - Left thumb CMC joint corticosteroid injection Date of surgery: 08-22-2020 Currently employed?: Retired Patient arrives for recheck. She states she is doing well, ROM is getting better. She states she can see a big difference in her recovery this past week. RK ALEXIS MD [address] [place] [address], [address], [facility] 09/29/2020 16:47:28 11/10/2020 text/html Patient reports that she is doing well overall with no significant pain. She has been working with therapy and feels that she is progressing well in this regard. Reports that the mild numbness and tingling along the superficial radial sensory nerve distribution along the dorsal hand continues to gradually improving. Primary Care Physician: Demetrius Seth Hand dominance: Right Location: Right Thumb Pain level: 0 /10 Recent Surgery: Yes Procedure: Right thumb CMC interpositional arthroplasty with APL tendon transfer suspension - Right half trapezoid excision - Right flexor carpi radialis tenosynovectomy - Left thumb CMC joint corticosteroid injection Date of surgery: 08-22-2020 Currently employed?: Retired Patient arrives for recheck. She states that she is doing well. OT is going well, progressing everyday. She states that she is still having a hard time with her fine motor skills. RK ALEXIS MD [address] [place] [address], [address], [facility] 11/11/2020 18:10:56 OBGyn Episode No OBEpisode recorded.
--- OUTSIDE RECORDS SUMMARY | 2025-02-25 11:56 | XMS_ITS | Clinical Summary ---
Author Organization [facility] Address [address] [place] [address] Care Team Providers Care Paper Tube Cutter Name Role Phone Anthony Seth MD Primary Care Provider [phone] Allergies No known active allergies Medications azelastine [...] or (1 - 1-dose 75+ series) 11/26/2022 [id number] Vaccine ( - 2024- season) 2024 01/15/2023, [...] patient's age to complete this topic Insurance [facility] LUCY BELTRAN [id number] [facility] Care Teams Paper Tube Cutter Relationship Specialty Start Date End Date Anthony Seth MD [address] [place] [address] PCP - General 09/09/20
--- OUTSIDE RECORDS SUMMARY | 2025-02-25 11:56 | XMS_ITS | Referral Summary ---
Author Organization [facility] ([place], [place], [place], [place]) Address [address] [place] [address] Care Team Providers Care Supervisor Mapping Name Role Phone Unavailable Primary Care Provider [...]
--- OUTSIDE RECORDS SUMMARY | 2025-02-25 11:56 | XMS_ITS | Clinical Summary ---
Author Organization [facility] ([place], [place], [place], [place]) Address [address] [place] [address] Care Team Providers Care Abatement Worker Name Role Phone Unavailable Primary Care Provider [...]
--- OUTSIDE RECORDS SUMMARY | 2025-02-25 11:56 | XMS_ITS | Clinical Summary ---
Author Organization [facility] Address [address] [place] [address] Care Team Providers Care Multi Media Specialist Name Role Phone Anthony Seth MD Primary Care Provider [phone] Allergies No known active allergies Medications loratadine [...] Take 1 tablet by mouth Daily. Active azelastine (ASTELIN) 0.1 % nasal spray USE 1 TO 2 SPRAYS IN EACH NOSTRIL TWICE DAILY NEEDED Active EPINEPHrine (EPIPEN) 0.3 MG/0.3ML solution auto-injector injection As Needed. 5 Active Active Problems Problem Noted Date Diagnosed Date Essential hypertension 05/21/2017 Dyslipidemia 05/21/2017 Paroxysmal atrial fibrillation 05/21/2017 Encounters Date Type Department Care Team Description 02/18/2025 11:30 AM EDT Office Visit [facility] [address] [place] [address] Yunier Red MD Paroxysmal atrial fibrillation (Primary Dx); Essential hypertension; Dyslipidemia; LEE (dyspnea on exertion) 02/18/2025 Travel from Last 3 Months Family History Medical History Relation Name Comments [...] Pulse 78 02/18/2025 11:26 AM EDT Temperature 36.1 C (97 F) 03/15/2016 1:53 PM EST Respiratory Rate - - Oxygen Saturation 97% 02/18/2025 11:26 AM EDT Inhaled Oxygen Concentration - - Weight 94.3 kg (208 lb) 02/18/2025 11:26 AM EDT Height 175.3 cm (5' 9 ) 02/18/2025 11:26 AM EDT Body Mass Index 30.72 02/18/2025 11:26 AM EDT Plan of Treatment Upcoming Encounters Date Type Department Care Team (Late st Contact Info) Description 07/21/2026 12:00 PM EDT Office Visit [facility] [address] [place] [address] Yunier Red MD [address] [facility] [address] [place] [address] Health Maintenance Due Date Last Done Comments DXA SCAN 1945 LIPID PANEL 1945 COLOGUARD 11/26/1992 COLON CANCER SCREENING 5 YEA R SIGMOIDOSCOPY 11/26/1992 CT COLONOGRAPHY 11/26/1992 FECAL OCCULT BLOOD TEST 11/26/1992 FIT Testing (1 year) 11/26/1992 ANNUAL WELLNESS VISIT 05/21/2017 HEPATITIS C SCREENING 05/21/2017 Pneumococcal Vaccine 50+ (2 of 2 - PCV) 11/20/2018 11/20/2017 RSV Vaccine - Adults (1 - 1- dose 75+ series) 11/26/2022 INFLUENZA VACCINE 2024 02/19/2024, , 03/08/2021, Additional history exists ZOSTER VACCINE (3 of 3) 12/22/2024 10/27/2024, 12/20 COVID-19 Vaccine (9 - Pfizer risk 2023- season) 2024 02/13/2024, 01/15/2023, 05/09/2022, Additional history [...] Most Recently Relevant to Health Maintenance Insurance [facility] [employer] PPO Care Teams Multi Media Specialist Relationship Specialty Start Date End Date Anthony Seth MD [address] [facility] [address] [place] [address] PCP - General Family Medicine 10/02/21
== END 2025-02-25 23:59 | disposition home or self-care (01) ==
LOC: RT 11:52
PROVIDERS: PCP Family Medicine; Visit Provider Internal Medicine Cardiovascular Disease
DX: M19.012 Primary osteoarthritis, left shoulder (principal); I20.89 Other forms of angina pectoris; I48.91 Unspecified atrial fibrillation; R93.1 Abnormal findings on diagnostic imaging of heart and coronary circulation; Z98.890 Other specified postprocedural states
CPT/HCPCS: 72020; 73030; 93306